=== PATIENT | male | born 1950 | race Caucasian/White ===

== ENCOUNTER 2019-02-25 09:33 | Inpatient (IN) ==
[2019-02-18 13:57] LABS: Appearance,Urine CLEAR; Bilirubin,Urine NEG (NEG); Color,Urine YELLOW; Glucose,Urine (UA) NEGATIVE (NEG); Ketones,Urine NEG (NEG); Leukocyte Esterase,Urine NEG /uL (NEG); Nitrate,Urine NEG (NEG); Protein,Urine NEG (NEG); Specific Gravity,Urine 1.018 (1.000-1.035); Urine Blood NEG mg/dL (<0.03)
[2019-02-18 14:43] LABS: Basophils # (Auto) 0 K/mcL (0.0-0.3); Basophils % (Auto) 0.4 % (0.0-2.0); Eosinophils # (Auto) 0.3 K/mcL (0.0-0.7); Eosinophils % (Auto) 3.8 % (0.0-7.0); Granulocytes % (Auto) 53.5 % (38.0-78.0); Hematocrit 42.6 % (41.0-55.0); Hemoglobin 13.7 g/dL (13.5-16.5); Lymphocytes # (Auto) 2.5 K/mcL (1.5-4.8); Lymphocytes % (Auto) 32.3 % (15.5-49.0); Mean Cell Volume 85.5 fL (80.0-100.0); Mean Corpuscular HGB Conc 32.2 g/dL (31.0-36.0); Mean Platelet Volume 8.2 fL (7.4-10.4); Monocytes # (Auto) 0.8 K/mcL (0.1-0.9); Platelet Count 245 K/mcL (140-440); RBC 4.98 M/mcL (4.50-5.90); WBC 7.7 K/mcL (4.5-11.0)
[2019-02-18 14:46] LABS: Blood Urea Nitrogen 14 mg/dl (8-23); Calcium 9.5 mg/dl (8.6-10.4); Carbon Dioxide 25 mmol/L (22-30); Chloride 101 mmol/L (96-108); Glomerular Filtration Rate 86; Glucose 110 mg/dL (70-105)
[2019-02-18 14:50] LABS: Prothrombin Time 13.1 sec (11.9-14.5)
[2019-02-18 14:59] LABS: Estimated Average Glucose(eAG) 143 mg/dL; Hemoglobin A1C 6.6 % HGB (4.0-6.0)
[~2019-02-25 09:33] MED LIST: 0.9 % SODIUM CHLORIDE 9 ML, KETOROLAC 30 MG, ROPIVACAINE HCL/PF 49.5 ML, EPINEPHrine 0.... IJ SCH; ACETAMINOPHEN 500 MG TABLET PO SCH; CELECOXIB 200 MG CAPSULE PO SCH; GABAPENTIN 400 MG CAPSULE PO SCH; IPRATROPIUM/ALBUTEROL 3 ML AMPUL.NEB NEB PRN; SCOPOLAMINE 1 PATCH PATCH TOPICAL PRN; ceFAZolin 2 GM in DEXTROSE 5% IN WATER 50 ML IV SCH; oxyCODONE 10 MG TAB.ER.12H PO SCH
[2019-02-25] MEDS ORDERED: SUCCINYLCHOLINE 20 MG/ML ML IV ONE (13:20)
[2019-02-25] MEDS ORDERED: GLYCOPYRROLATE 0.2 MG/ML VIAL IV ONE (13:20)
[2019-02-25] MEDS ORDERED: PROPOFOL 200 MG/20 ML VIAL IV ONE (13:20)
[2019-02-25] MEDS ORDERED: DEXAMETHASONE 10 MG/ML VIAL IV ONE (13:20)
[2019-02-25] MEDS ORDERED: ONDANSETRON 4 MG/2 ML VIAL IV ONE (13:20)
[2019-02-25] MEDS ORDERED: TRANEXAMIC ACID 1,000 MG/10 ML VIAL IV ONE (13:20)
[2019-02-25] MEDS ORDERED: VASOPRESSIN 20 UNIT/ML VIAL IV ONE (13:20)
[2019-02-25] MEDS ORDERED: MIDAZOLAM 5 MG/5 ML VIAL IV ONE (13:20)
[2019-02-25] MEDS ORDERED: fentaNYL 100 MCG/2 ML VIAL IV ONE (13:20)
[2019-02-25] MEDS ORDERED: LIDOCAINE HCL/PF 100 MG/5 ML SYRINGE IV ONE (13:20)
[2019-02-25] MEDS ORDERED: GENTAMICIN SULFATE 800 MG/20 ML VIAL IR ONE (13:48)
[2019-02-25] MEDS ORDERED: ePHEDrine 50 MG/ML AMPUL IV PRN (14:19)
[2019-02-25] MEDS ORDERED: ONDANSETRON 4 MG/2 ML VIAL IV PRN ×2 (14:19→15:07)
[2019-02-25] MEDS ORDERED: MEPERIDINE 25 MG/ML SYRINGE IV PRN (14:19)
[2019-02-25] MEDS ORDERED: ATROPINE SULFATE 0.4 MG/ML VIAL IV PRN (14:19)
[2019-02-25] MEDS ORDERED: FLUMAZENIL 0.1 MG/ML ML IV PRN (14:19)
[2019-02-25] MEDS ORDERED: METHOCARBAMOL 1,000 MG/10 ML VIAL IV PRN (14:19)
[2019-02-25] MEDS ORDERED: NALOXONE HCL 0.4 MG/ML VIAL IV PRN (14:19)
[2019-02-25] MEDS ORDERED: diphenhydrAMINE 50 MG/ML VIAL IV PRN (14:19)
[2019-02-25] MEDS ORDERED: IPRATROPIUM/ALBUTEROL 3 ML AMPUL.NEB NEB PRN (14:19)
[2019-02-25] MEDS ORDERED: METOPROLOL TARTRATE 5 MG/5 ML VIAL IV PRN (14:19)
[2019-02-25] MEDS ORDERED: PROMETHAZINE 25 MG/ML VIAL IV PRN (14:19)
[2019-02-25] MEDS ORDERED: fentaNYL 100 MCG/2 ML VIAL IV PRN (14:19)
[2019-02-25] MEDS ORDERED: LACTATED RINGERS 1,000 ML IV SCH (14:30)
[2019-02-25] MEDS ORDERED: BENZOCAINE/MENTHOL 1 LOZENGE PO PRN (15:07)
[2019-02-25] MEDS ORDERED: FLEETS ADULT ENEMA PR PRN (15:07)
[2019-02-25] MEDS ORDERED: MAGNESIUM HYDROXIDE 30 ML ORAL.SUSP PO PRN (15:07)
[2019-02-25] MEDS ORDERED: TRANEXAMIC ACID 1,000 MG/10 ML VIAL IV SCH (15:07)
[2019-02-25] MEDS ORDERED: ACETAMINOPHEN 325 MG TABLET PO PRN (15:07)
[2019-02-25] MEDS ORDERED: BISACODYL 10 MG SUPP.RECT PR PRN (15:07)
[2019-02-25] MEDS ORDERED: HYDROmorphone 2 MG/ML VIAL IV PRN (15:07)
[2019-02-25] MEDS ORDERED: KETOROLAC 15 MG/ML VIAL IV PRN (15:07)
[2019-02-25] MEDS ORDERED: POLYETHYLENE GLYCOL 3350 17 GM PACKET PO PRN (15:07)
--- NOTE | 2019-02-25 15:07 | Brief Operative Note ---
Date of procedure: 02/25/19 Pre-op diagnosis: left hip djd severe Post-op diagnosis: same Procedure: Left hip total hip replacement Grafts/Implants: Yes Anesthesia: GRACEA Surgeon: Elmo Edwards Furnace Room Supervisor: Florencio Chapin Estimated blood loss (cc): 120 Tourniquet Time (Minutes): 0 Specimens Removed/Pathology: none sent Condition: stable Disposition: PACU
[2019-02-25] MEDS ORDERED: IBUPROFEN 200 MG TABLET PO PRN (15:09)
[2019-02-25] MEDS ORDERED: HYDROCODONE/APAP 7.5/325MG TABLET PO PRN (15:09)
--- NOTE | 2019-02-25 15:43 | Operative Note ---
DATE OF OPERATION: 02/25/2019 PREOPERATIVE DIAGNOSIS: Right hip degenerative arthritis, severe. POSTOPERATIVE DIAGNOSIS: Right hip degenerative arthritis, severe. PROCEDURE: Right total hip arthroplasty with a small amount of cement. SURGEON: Elmo Edwards MD POTTERY MACHINE OPERATOR: Florencio Chapin PA-C. This provider's expertise and technical skill were required throughout the case. The DG assisted with preoperative coordination, intraoperative retraction, wound closure, dressing and splint application, as well as postoperative documentation and care coordination. ANESTHESIA: General LMA anesthesia. COMPLICATIONS: None. TOURNIQUET TIME: None. ESTIMATED BLOOD LOSS: About 120 mL INDICATIONS: Patient had preoperative diagnosis of right hip degenerative arthritis, failed all conservative measures, both anti-inflammatories and injections, and now has x-rays with [id number] arthritis throughout. DESCRIPTION OF PROCEDURE: The patient was brought to the operating room and put to sleep with general anesthesia. Once asleep, the patient had the right hip sterilely prepped and draped in the left lateral position. Right hip was confirmed as the operative site. A superior posterior incision was made and we were able to make this superior approach to the hip. We dislocated the hip and made our neck cut at 35 mm in length and then subluxed the hip anteriorly. We reamed up the acetabulum to the size of 54, implanted a 54 cup with a 30 mm screw with a hooded liner. Once this was done, we then broached up the femur and placed a size 5 stem with a small amount of cement on the distal end. This seemed to fit very nicely and was very stable. This was reduced and x-rays taken to confirm leg length. The final implant was placed and a +2.5 neck length on the ceramic ball. There were no complications. We irrigated thoroughly, repaired the capsule with #2 Ethibond, closed the fascial layer with #1 Stratafix, closed the skin with Stratafix and bayron. The patient tolerated this well without complication. RBH:jake Job ID: [id number] Doc ID: [id number] Elmo Edwards MD
--- NOTE | 2019-02-25 15:51 | XRay Report ---
CLINICAL INFORMATION: right total hip arthroplasty COMPARISON: None. FINDINGS: Intraoperative film shows femoral stem template and acetabular prostheses in near anatomic position. No osseous abnormality. IMPRESSION: Intraoperative film - incomplete right total hip prostheses Interpreted and Authenticated by: Hilario Michele 02/25/19
--- NOTE | 2019-02-25 15:56 | XRay Report ---
CLINICAL INFORMATION: Post-op Total Hip COMPARISON: None. FINDINGS: Right total hip prostheses is in near-anatomic alignment with slightly more anteversion of the prosthetic acetabulum then is typically seen. No osseous abnormality. Mild degenerative changes left hip noted. SI joints are normal. Soft tissue swelling over the surgical site IMPRESSION: Right total hip prostheses. Interpreted and Authenticated by: Hilario Michele 02/25/19
[2019-02-25] MEDS: oxyCODONE/APAP 5/325MG TABLET PO PRN ×2 (17:44→21:24)
[2019-02-25] MEDS: 0.45 % SODIUM CHLORIDE 1,000 ML IV SCH ×2 (17:45→18:01)
[2019-02-25] MEDS: LACTATED RINGERS 1,000 ML IV SCH (17:45)
[2019-02-25] MEDS: GABAPENTIN 400 MG CAPSULE PO SCH (20:48)
[2019-02-25] MEDS: DOCUSATE SODIUM 100 MG CAPSULE PO SCH (20:48)
[2019-02-25] MEDS: ASPIRIN 325 MG ENTERIC COATED TABLET PO SCH (20:48)
[2019-02-25] MEDS: [UNRECOGNIZED DRUG - OTHER] NAS SCH (20:50)
[2019-02-25] MEDS: METOPROLOL TARTRATE 50 MG TABLET PO SCH (20:50)
[2019-02-25] MEDS: 0.9 % SODIUM CHLORIDE 10 ML SYRINGE IV SCH (20:50)
[2019-02-25] MEDS ORDERED: ATORVASTATIN 40 MG TABLET PO SCH (21:00)
[2019-02-25] MEDS ORDERED: SENNOSIDES 1 TABLET PO SCH (21:00)
[2019-02-25] MEDS ORDERED: DIVALPROEX SODIUM 250 MG TABLET PO SCH (21:00)
[2019-02-25] MEDS ORDERED: LISINOPRIL 20 MG TABLET PO SCH (21:00)
[2019-02-25] MEDS ORDERED: amLODIPine 10 MG TABLET PO SCH (21:00)
[2019-02-25] MEDS ORDERED: TEMAZEPAM 15 MG CAPSULE PO PRN (21:00)
[2019-02-25] MEDS ORDERED: OXYBUTYNIN CHLORIDE 5 MG TABLET PO SCH (21:00)
[2019-02-25] MEDS: ceFAZolin 1 GM VIAL IV SCH (21:24)
[2019-02-26] MEDS: LACTATED RINGERS 1,000 ML IV SCH ×2 (00:57→09:24)
[2019-02-26] MEDS: 0.45 % SODIUM CHLORIDE 1,000 ML IV SCH ×2 (00:57→09:24)
[2019-02-26] MEDS: oxyCODONE/APAP 5/325MG TABLET PO PRN ×2 (02:31→10:32)
[2019-02-26] MEDS: 0.9 % SODIUM CHLORIDE 10 ML SYRINGE IV SCH (05:24)
[2019-02-26] MEDS: ceFAZolin 1 GM VIAL IV SCH (05:24)
[2019-02-26] MEDS ORDERED: OMEPRAZOLE 20 MG CAPSULE PO SCH (07:30)
[2019-02-26] MEDS ORDERED: LEVOTHYROXINE 50 MCG TABLET PO SCH (07:30)
--- NOTE | 2019-02-26 07:38 | Orthopedic Progress Note ---
Subjective Patient information: Note initiated : 02/26/19 at 7:35 am Service Date, if different from initiated Date: [] Patient: Goldy Ortiz 68 y/o M admitted on 02/25/19 for Right Total Hip Arthroplasty. Chief Complaint: [Pt is stable this morning on post operative day 1 without any significant concerns or complaints. Patients vital signs have remained stable. Patients dressing is dry and is grossly intact from a neurovascular and motor standpoint. Patients 10 point ROS is otherwise negative. ] Objective Vital signs: Vital Signs Temp Pulse Resp BP BP Pulse Ox 02/26/19 07:18 70 18 94 02/26/19 07:00 70 02/26/19 03:10 98.0 F 70 18 123/70 93 02/25/19 23:48 98.5 F 78 18 130/66 94 02/25/19 19:31 98.0 F 72 18 142/68 95 02/25/19 19:30 98 02/25/19 19:02 72 132/73 96 02/25/19 18:31 69 129/72 93 02/25/19 18:16 64 119/72 93 02/25/19 18:02 64 103/63 91 02/25/19 17:46 65 95/51 96 02/25/19 17:31 65 103/67 90 02/25/19 17:15 68 17 99 02/25/19 17:07 99 02/25/19 16:21 97.5 F 68 17 112/57 99 02/25/19 16:06 97.0 F 68 20 106/61 95 02/25/19 15:55 97.0 F 61 18 95/52 93 02/25/19 15:40 98.2 F 63 19 88/39 94 02/25/19 15:35 62 20 103/46 95 02/25/19 15:30 61 17 100/53 100 02/25/19 15:25 59 L 17 101/46 100 02/25/19 15:20 60 18 102/48 99 02/25/19 15:19 97.9 F 62 16 120/58 100 02/25/19 10:00 98.0 F 60 18 144/86 97 02/25/19 09:33 98.0 F 61 18 144/86 97 Intake and Output 02/25/19 02/26/19 02/26/19 21:59 05:59 13:59 Intake Total 2750 425 Output Total 151 800 250 Balance 2599 -375 -250 Intake: Oral 500 425 IV - Manual Only 2250 Output: Void Amount 800 250 # of times incontinent of urine 1 Estimated Blood Loss 150 Other: Urine Appearance Clear Clear Clear Urine Color Bright Yellow Bright Yellow Bright Yellow Urine Odor Normal Normal Normal Weight 264 lb 11.2 oz Intake & Output: Intake & Output 02/25/19 02/26/19 02/26/19 21:59 05:59 13:59 Intake Total 2750 425 Output Total 151 800 250 Balance 2599 -375 -250 Weight 264 lb 11.2 oz Intake: Oral 500 425 IV - Manual Only 2250 Output: Void Amount 800 250 # of times incontinent of urine 1 Estimated Blood Loss 150 Other: Urine Appearance Clear Clear Clear Urine Color Bright Yellow Bright Yellow Bright Yellow Urine Odor Normal Normal Normal Incision: Yes healing Incision clean and dry: Yes Dressing: Yes clean Weight bearing status: full Neurological exam IM: Yes motor sensory intact, Yes neurovascular intact Extremities exam IM: Yes Foot pink and warm, Yes neurovascular intact - Labs CBC & BMP: 02/26/19 05:00 02/18/19 11:54 Labs: Orthopedic Labs 02/18/19 11:54 PT 13.1 INR 1.0 APTT 27 02/26/19 02/18/19 05:00 11:54 Hgb 13.7 Hct 39.3 L 42.6 Assessment and Plan (1) Hx of total hip arthroplasty The patient has been educated regarding dressing care, Physical Therapy recommendations, home exercises, restrictions, and follow up appointments. The patient has had all necessary DME prescribed. The patient has remained relatively stable during their hospital course. Status: Acute
--- NOTE | 2019-02-26 07:41 | Discharge Summary ---
Ortho Discharge - MAREK - Patient Instructions Diet: Regular Diet Activity: activity as tolerated, weight bearing as tolerated Total Hip Protocol: Follow activity instructions as provided by Physical Therapy. Dressing Care: May shower in 2 days - Problem Maintenance (1) Hx of total hip arthroplasty Status: Acute - Follow Up Plan Follow Up Appointments: Florencio Chapin PA-C [Physician Dry House Attendant] - 03/12/19 9:10 am Disposition: Home, Self-Care Prognosis: Good Rehab Potential: Good I certify that the patient requires SNF services: No Overall status at discharge: patient is progressing back to baseline - Orders For Discharge Prescriptions: Docusate Sodium [Colace] 100 mg PO BID #60 cap Transmission Status: Pending to [facility] Aspirin [Ecotrin] 325 mg PO BID #60 tab.ec Transmission Status: Pending to [facility] oxyCODONE/APAP [Percocet 5-325 mg] 1 - 2 tab PO Q4HP PRN #75 tab PRN Reason: Per Pain Protocol Prescription Printed
[2019-02-26] MEDS: METOPROLOL TARTRATE 50 MG TABLET PO SCH (08:37)
[2019-02-26] MEDS: GABAPENTIN 400 MG CAPSULE PO SCH (08:37)
[2019-02-26] MEDS: ASPIRIN 325 MG ENTERIC COATED TABLET PO SCH (08:37)
[2019-02-26] MEDS: DOCUSATE SODIUM 100 MG CAPSULE PO SCH (08:37)
[2019-02-26] MEDS ORDERED: FLUoxetine HCL 20 MG CAPSULE PO SCH (09:00)
[2019-02-26] MEDS ORDERED: FOLIC ACID 1 MG TABLET PO SCH (09:00)
[2019-02-26] MEDS ORDERED: buPROPion 150 MG TAB.XL.24H PO SCH (09:00)
[2019-02-26] MEDS ORDERED: ASPIRIN 81 MG TAB.CHEW PO SCH (09:00)
[2019-02-26] MEDS: [UNRECOGNIZED DRUG - OTHER] NAS SCH (09:23)
== END 2019-02-26 12:10 | disposition home or self-care (01) | DRG 470 ==
LOC: MEDSUR 09:33
PROVIDERS: ADMIT Orthopaedic Surgery; ATTEND Orthopaedic Surgery

== ENCOUNTER 2019-03-01 20:48 | Inpatient (IN) ==
--- NOTE | 2019-03-01 21:36 | Emergency Department Note ---
Altered Mental Status HPI - General Chief Complaint: Altered Mental Status Stated Complaint: altered mental status Time Seen by Provider: 03/01/19 21:10 Source: EMS Mode of arrival: EMS Limitations: altered mental status - History of Present Illness HPI Narrative: This 68-year-old male comes emergency room transferred by EMS. He has been at home for the last 4 days. He had surgery by Dr. Jamari Edwards, right hip replacement (total) 4 days ago on Monday the . He had a significant fall on the and was reevaluated here but no findings came of that visit. In the past 2 days now he is acted confused, slurred speech, hallucinating (was petting his cat which was not present) has acted weak and tired and had incontinence of urine when he arrived. REVIEW OF SYSTEMS: Denies fever or chills. reports that he had sweats today No blurry vision or double vision No chest pain May be short of breath but hard to understand his answer No abdominal pain, nausea or vomiting No dizziness Has chronic anxiety and depression for which he takes fluoxetine and bupropion. [facility]; diet controlled. - Related Data Home Medications Medication Instructions Recorded Confirmed Aspirin 81 mg PO DAILY 02/18/19 03/01/19 FLUoxetine HCL [Prozac] 60 mg PO DAILY 02/18/19 03/01/19 Flunisolide Graciela [place] [Nasalide] 2 spray GRACIELA BID 02/18/19 03/01/19 Folic Acid 1 mg PO DAILY 02/18/19 03/01/19 Gabapentin [Neurontin] 400 mg PO TID 02/18/19 03/01/19 Hydrocodone/APAP 7.5/325Mg [Stephen[place] 1 tab PO BIDP PRN 02/18/19 03/01/19 7.5-325Mg] Ibuprofen [Motrin] 400 mg PO TIDP PRN 02/18/19 03/01/19 Levothyroxine [Synthroid] 50 mcg PO QAMAC 02/18/19 03/01/19 Lisinopril [Zestril] 40 mg PO HS 02/18/19 03/01/19 Metoprolol Tartrate [Lopressor] 50 mg PO BID 02/18/19 03/01/19 Omeprazole [Prilosec] 40 mg PO ACB 02/18/19 03/01/19 Oxybutynin Chloride [Ditropan] 5 mg PO HS 02/18/19 03/01/19 Rosuvastatin [Crestor] 40 mg PO HS 02/18/19 03/01/19 amLODIPine [Norvasc] 10 mg HS 02/18/19 03/01/19 buPROPion [Wellbutrin Xl] 300 mg PO DAILY 02/18/19 03/01/19 Divalproex Sodium [Divalproex 1,000 mg PO HS 02/20/19 03/01/19 Sodium ER] Previous Rx's Medication Instructions Recorded Aspirin [Ecotrin] 325 mg PO BID #60 tab.ec 02/26/19 Docusate Sodium [Colace] 100 mg PO BID #60 cap 02/26/19 oxyCODONE/APAP [Percocet 5-325 mg] 1 - 2 tab PO Q4HP PRN #75 tab 02/26/19 Allergies Allergy/AdvReac Type Severity Reaction Status Date / Time No Known Drug Allergies Allergy Verified 03/01/19 20:56 Past Medical History - Past Medical History [facility] Narrative: Medical History (Last Updated 03/01/19 @ 21:50 by José Chiu DO) Coronary artery disease (Chronic) Diabetes mellitus, type 2 (Chronic) Hypertension, essential (Chronic) Hyperlipidemia (Chronic) Obstructive sleep apnea on CPAP (Chronic) Hypothyroidism, acquired (Chronic) Right hip pain (Chronic) Obesity (BMI 30-39.9) (Chronic) Peripheral neuropathy (Chronic) Anxiety, generalized (Chronic) BPH (benign prostatic hyperplasia) (Chronic) Fall (Resolved) Past Surgical History (Last Updated 03/01/19 @ 21:49 by José Chiu DO) History of elbow surgery (Acute) History of total right hip arthroplasty (Acute) Status post cataract extraction and insertion of intraocular lens (Acute) Source: old records reviewed, obtained from family Psychiatric history: Reports: anxiety, depression - Social History smoking status: Never smoker Alcohol use: Reports: None Drug use: Reports: none. Denies: marijuana Physical Exam Limitations: altered mental status General appearance: alert, in no apparent distress, other (Most of the time will lay with his eyes closed but quickly seems alert when spoken to and opens his eyes.) Head: atraumatic, normocephalic Eye: Present: normal appearance, PERRL, EOMI. Absent: scleral icterus, conjunctival injection ENT: Present: normal oropharynx, mucous membranes moist Neck: Present: trachea midline. Absent: lymphadenopathy, thyromegaly Chest: Present: symmetric chest wall rise Respiratory: Present: normal lung sounds bilaterally. Absent: respiratory distress, wheezes, stridor, accessory muscle use, prolonged expiratory phase Cardiovascular: Present: regular rate, normal rhythm. Absent: systolic murmur, diastolic murmur Abdominal: Present: soft, other (Large and domed but soft). Absent: distention, tenderness, guarding, rebound, rigidity, organomegaly, mass Extremities: Absent: pedal edema, pretibial edema, calf tenderness Neurological: Present: alert Patient oriented to: Present: person, time (mostly). Absent: place Speech: Present: slurred, other (Rather poor enunciation making it difficult to hear or understand at times.) Cranial nerves: EOM function (II, III, IV, ): Normal, tongue deviation (XII): Normal Cerebellar function: finger to nose: Abnormal Left, Abnormal Right (He is not able to consistently get his finger to his nose even when instructed to multiple times.) Motor strength - LUE: 4/5 Motor strength - RUE: 4/5 Motor strength - LLE: 4/5 Motor strength - RLE: 3/5 Coma Scale Eye Opening: To Voice Coma Scale Motor Response: Obeys Commands Coma Scale Verbal Response: Oriented Coma Scale Total: 14 Psychiatric: Present: normal affect, normal mood. Absent: depressed, agitated, anxious, suicidal ideation, serious, tearful, poor eye contact Skin: Present: warm, dry Course Vital Signs Temperature 97.9 F 03/01/19 20:49 Pulse Rate 65 03/01/19 20:49 Respiratory Rate 18 03/01/19 20:49 Blood Pressure 163/139 03/01/19 20:49 Pulse Oximetry (%) 94 03/01/19 20:49 Temperature 99.0 F 03/01/19 23:39 Pulse Rate 66 03/01/19 23:59 Respiratory Rate 20 03/01/19 23:59 Blood Pressure 89/47 03/01/19 23:59 Pulse Oximetry (%) 93 03/01/19 23:59 Altered Mental Status - MDM Narrative Medical decision making narrative: 9:19 PM - series of mental status type of changes, general weakness, hallucinations, incontinence of urine tonight here, etc. We will do broad work- up including imaging with CT scan of the brain. Because of a history of sleep apnea will go ahead with a venous blood gas. 10:33 PM - patient's EKG demonstrates a right bundle branch block with a normal sinus rhythm with a rate of 63. Some flattening of T waves in 3, aVF and inverted in V1. No ST-T wave segment depression or elevation. 10:37 PM - CT of the head without IV contrast indicates "no acute intracranial abnormality". 12:10 AM - after 500 cc normal saline bolus patient actually seemed to be much more alert and interactive, feisty, telling a few jokes, and much of his wording came out significantly more clear. I spoke with family about the consideration of needing an MRI of his brain which is not available here tonight. [place]ibility [place] They are requesting that I speak with the hospitalist locally to consider if this patient could be kept here. 12:17 AM - spoke with hospitalist, Dr. Emile Mota, who agrees with the considerations of additional fluids, likely will improve, MRI is likely available tomorrow we found out while on the phone, etc. and so kindly accepts this patient. Transition orders written. Patient will have additional fluid boluses. We are using lactated Ringer's now. He is also taking water orally. He is joking and smiling and interactive with his family with bright eyes currently. This is still even in spite of systolic blood pressures 85-90. He is expected to do well. - Lab Data Lab results reviewed: Yes I reviewed the patient's lab results. Result diagrams: 03/01/19 21:10 03/01/19 21:10 Lab Results 03/01/19 03/01/19 03/01/19 Range/Units 21:10 21:10 21:10 WBC 9.6 (4.5-11.0) K/mcL RBC 3.62 L (4.50-5.90) M/mcL Hgb 10.1 L (13.5-16.5) g/dL Hct 31.1 L (41.0-55.0) % MCV 86.1 (80.0-100.0) fL MCH 27.9 (26.0-34.0) pg MCHC 32.4 (31.0-36.0) g/dL RDW 16.5 H (11.5-14.5) % Plt Count 248 (140-440) K/mcL MPV 8.2 (7.4-10.4) fL Gran % 68.7 (38.0-78.0) % Lymph % (Auto) 18.2 (15.5-49.0) % Gillespie % (Auto) 10.9 (1.0-12.0) % Eos % (Auto) 2.0 (0.0-7.0) % Baso % (Auto) 0.2 (0.0-2.0) % Gran # 6.6 (1.8-8.0) K/mcL Lymph # (Auto) 1.7 (1.5-4.8) K/mcL Gillespie # (Auto) 1.0 H (0.1-0.9) K/mcL Eos # (Auto) 0.2 (0.0-0.7) K/mcL Baso # (Auto) 0 (0.0-0.3) K/mcL ABG Methemoglobin (0.4-1.5) % VBG pH (7.32-7.42) U VBG pCO2 (41.0-51.0) mmHg VBG pO2 (25-40) mmHg VBG HCO3 (24.0-28.0) mmol/L VBG Total CO2 (25.0-29.0) mmol/L VBG O2 Saturation (40.0-70.0) % VBG Base Excess (-2.0-2.0) VBG Lactic Acid 1.2 (0.5-2.0) mmol/L Carboxyhemoglobin (0.0-1.5) % THgb Total Hemoglobin (13.5-16.5) gm/dL O2 Delivery Level Sodium 135 (133-145) mmol/L Potassium 4.7 (3.3-5.1) mmol/L Chloride 99 (96-108) mmol/L Carbon Dioxide 26 (22-30) mmol/L Anion Gap 10.0 (8-16) BUN 44 H (8-23) mg/dl Creatinine 1.7 H (0.7-1.2) mg/dl GFR Calculation 40 Glucose 146 H (70-105) mg/dL Calcium 8.8 (8.6-10.4) mg/dl Total Bilirubin 1.0 (0.0-1.0) mg/dL AST 61 H (0-37) U/l ALT 32 (0-40) U/l Alkaline Phosphatase 93 (39-117) U/L Total Protein 6.2 (5.9-8.4) gm/dL Albumin 2.7 L (3.2-5.2) gm/dL Globulin 3.5 (2.2-3.7) gm/dL Albumin/Globulin Ratio 0.8 L (1.0-2.3) Urine Color Urine Appearance Urine pH (5.0-9.0) Ur Specific [place] (1.000-1.035) Urine Protein (NEG) mg/dL Urine Glucose (UA) (NEG) mg/dL Urine Ketones (NEG) mg/dL Urine Occult Blood (<0.03) mg/dL Urine Nitrate (NEG) Urine Bilirubin (NEG) mg/dL Urine Urobilinogen (NEG) mg/dL Ur Leukocyte Esterase (NEG) /uL Ur Culture Indicated? 03/01/19 03/01/19 Range/Units 21:17 22:10 WBC (4.5-11.0) K/mcL RBC (4.50-5.90) M/mcL Hgb (13.5-16.5) g/dL Hct (41.0-55.0) % MCV (80.0-100.0) fL MCH (26.0-34.0) pg MCHC (31.0-36.0) g/dL RDW (11.5-14.5) % Plt Count (140-440) K/mcL MPV (7.4-10.4) fL Gran % (38.0-78.0) % Lymph % (Auto) (15.5-49.0) % Gillespie % (Auto) (1.0-12.0) % Eos % (Auto) (0.0-7.0) % Baso % (Auto) (0.0-2.0) % Gran # (1.8-8.0) K/mcL Lymph # (Auto) (1.5-4.8) K/mcL Gillespie # (Auto) (0.1-0.9) K/mcL Eos # (Auto) (0.0-0.7) K/mcL Baso # (Auto) (0.0-0.3) K/mcL ABG Methemoglobin 0.3 L (0.4-1.5) % VBG pH 7.42 (7.32-7.42) U VBG pCO2 44.0 (41.0-51.0) mmHg VBG pO2 64 H (25-40) mmHg VBG HCO3 28.0 (24.0-28.0) mmol/L VBG Total CO2 29.3 H (25.0-29.0) mmol/L VBG O2 Saturation 85.6 H (40.0-70.0) % VBG Base Excess 3.1 H (-2.0-2.0) VBG Lactic Acid (0.5-2.0) mmol/L Carboxyhemoglobin 3.3 H (0.0-1.5) % THgb Total Hemoglobin 10.3 L (13.5-16.5) gm/dL O2 Delivery Level Not Reportable Sodium (133-145) mmol/L Potassium (3.3-5.1) mmol/L Chloride (96-108) mmol/L Carbon Dioxide (22-30) mmol/L Anion Gap (8-16) BUN (8-23) mg/dl Creatinine (0.7-1.2) mg/dl GFR Calculation Glucose (70-105) mg/dL Calcium (8.6-10.4) mg/dl Total Bilirubin (0.0-1.0) mg/dL AST (0-37) U/l ALT (0-40) U/l Alkaline Phosphatase (39-117) U/L Total Protein (5.9-8.4) gm/dL Albumin (3.2-5.2) gm/dL Globulin (2.2-3.7) gm/dL Albumin/Globulin Ratio (1.0-2.3) Urine Color Yellow Urine Appearance Clear Urine pH 5.0 (5.0-9.0) Ur Specific [place] 1.021 (1.000-1.035) Urine Protein Neg (NEG) mg/dL Urine Glucose (UA) Negative (NEG) mg/dL Urine Ketones Neg (NEG) mg/dL Urine Occult Blood Neg (<0.03) mg/dL Urine Nitrate Neg (NEG) Urine Bilirubin Neg (NEG) mg/dL Urine Urobilinogen 2.0 A (NEG) mg/dL Ur Leukocyte Esterase Neg (NEG) /uL Ur Culture Indicated? No - EKG Data EKG attestation: Yes There are no EKG findings of acute coronary syndrome, Yes This EKG will be read by bindery manager Disposition Pt seen by SPLIT LEATHER DEPARTMENT SUPERVISOR/PA only: No Clinical Impression: Azotemia Hypotension Qualifiers: Hypotension type: hypotension due to hypovolemia Qualified Code(s): I95.89 - Other hypotension; E86.1 - Hypovolemia Change in mental status Qualifiers: Altered mental status type: delirium Qualified Code(s): R41.0 - Disorientation, unspecified Disposition: Xfer As Inpt ([facility]) Condition: Fair Referrals: No,PCP [Primary Care Provider] -
[2019-03-01 21:50] LABS: Basophils # (Auto) 0 K/mcL (0.0-0.3); Basophils % (Auto) 0.2 % (0.0-2.0); Eosinophils # (Auto) 0.2 K/mcL (0.0-0.7); Granulocytes % (Auto) 68.7 % (38.0-78.0); Hematocrit 31.1 % (41.0-55.0); Hemoglobin 10.1 g/dL (13.5-16.5); Lymphocytes # (Auto) 1.7 K/mcL (1.5-4.8); Lymphocytes % (Auto) 18.2 % (15.5-49.0); Mean Cell Volume 86.1 fL (80.0-100.0); Mean Corpuscular HGB Conc 32.4 g/dL (31.0-36.0); Mean Platelet Volume 8.2 fL (7.4-10.4); Monocytes % (Auto) 10.9 % (1.0-12.0); Platelet Count 248 K/mcL (140-440); RBC 3.62 M/mcL (4.50-5.90); Red Cell Distribution Width 16.5 % (11.5-14.5); WBC 9.6 K/mcL (4.5-11.0)
[2019-03-01 21:51] LABS: Appearance,Urine CLEAR; Bilirubin,Urine NEG (NEG); Color,Urine YELLOW; Culture Indicated,Urine NO; Glucose,Urine (UA) NEGATIVE (NEG); Ketones,Urine NEG (NEG); Leukocyte Esterase,Urine NEG /uL (NEG); Nitrate,Urine NEG (NEG); Protein,Urine NEG (NEG); Specific Gravity,Urine 1.021 (1.000-1.035); Urine Blood NEG mg/dL (<0.03)
[2019-03-01 22:06] LABS: ALT/SGPT 32 U/l (0-40); AST/SGOT 61 U/l (0-37); Albumin 2.7 gm/dL (3.2-5.2); Albumin/Globulin Ratio 0.8 (1.0-2.3); Alkaline Phosphatase 93 U/L (39-117); Blood Urea Nitrogen 44 mg/dl (8-23); Calcium 8.8 mg/dl (8.6-10.4); Carbon Dioxide 26 mmol/L (22-30); Chloride 99 mmol/L (96-108); Globulin 3.5 gm/dL (2.2-3.7); Glomerular Filtration Rate 40; Glucose 146 mg/dL (70-105)
[2019-03-01 22:31] LABS: ABG Methemoglobin 0.3 % (0.4-1.5); Total Hemoglobin 10.3 gm/dL (13.5-16.5); VBG Base Excess 3.1 (-2.0-2.0); VBG Oxygen Saturation 85.6 % (40.0-70.0); VBG PH 7.42 U (7.32-7.42); VBG PO2 64 mmHg (25-40); VBG Total CO2 29.3 mmol/L (25.0-29.0)
[2019-03-01] MEDS ORDERED: 0.9 % SODIUM CHLORIDE 500 ML IV ONE (23:19)
[2019-03-02] MEDS: 0.9 % SODIUM CHLORIDE 500 ML IV SCH (00:24)
[2019-03-02] MEDS ORDERED: ONDANSETRON 4 MG/2 ML VIAL IV PRN ×2 (00:31→08:33)
[2019-03-02] MEDS ORDERED: ACETAMINOPHEN 325 MG TABLET PO PRN (00:31)
[2019-03-02] MEDS ORDERED: POLYETHYLENE GLYCOL 3350 17 GM PACKET PO ONE ×2 (00:31→08:33)
[2019-03-02] MEDS: LACTATED RINGERS 1,000 ML IV SCH ×4 (01:10→14:46)
--- NOTE | 2019-03-02 01:50 | XRay Report ---
CLINICAL INFORMATION: Confusion and weakness COMPARISON: None. TECHNIQUE: PA and Lateral views FINDINGS: The heart size, mediastinum and pulmonary vessels are unremarkable. The lungs are clear. There are no effusions. The bones and soft tissues are within normal limits. IMPRESSION: Normal chest. Interpreted and Authenticated by: Hilario Michele 03/02/19
--- NOTE | 2019-03-02 01:52 | Cat Scan Report ---
CLINICAL INFORMATION: Altered mental status COMPARISON: None. TECHNIQUE: 2.5 mm helical slices were obtained in the skull base to vertex. Following reconstruction, axial reformatted images were reviewed at bone and parenchymal windows. The exam was performed using radiation dose optimization techniques including, but not limited to, automated exposure control, adjustment of the mA and/or kV according to patient size and use of iterative reconstruction technique. FINDINGS: The ventricles, sulci, fissures, and cisterns are symmetrically enlarged compatible with mild age-related atrophy. There is no subdural hemorrhage or extra-axial fluid collections appreciated. Mild chronic ischemic changes in the cerebral white matter - expected for age. There is a 5 mm remote lacunar infarct in the deep right frontal white matter. There is no intracerebral hemorrhage, mass effect, edema or other acute finding. The bone windows show no osseous abnormality. IMPRESSION: Mild atrophy with mild chronic ischemic changes in the cerebral white matter that expected for age. 5 mm lacunar infarct in the right frontal white matter. No acute findings Interpreted and Authenticated by: Hilario Michele 03/02/19
[2019-03-02] MEDS ORDERED: IPRATROPIUM/ALBUTEROL 3 ML AMPUL.NEB NEB ONE ×2 (03:06→03:11)
[2019-03-02 05:56] LABS: Basophils # (Auto) 0 K/mcL (0.0-0.3); Basophils % (Auto) 0.4 % (0.0-2.0); Eosinophils # (Auto) 0.3 K/mcL (0.0-0.7); Eosinophils % (Auto) 3.3 % (0.0-7.0); Granulocytes % (Auto) 57.9 % (38.0-78.0); Lymphocytes % (Auto) 25.3 % (15.5-49.0); Mean Cell Volume 87.1 fL (80.0-100.0); Mean Corpuscular HGB Conc 32.2 g/dL (31.0-36.0); Mean Platelet Volume 8.4 fL (7.4-10.4); Monocytes % (Auto) 13.1 % (1.0-12.0); Platelet Count 229 K/mcL (140-440); RBC 3.56 M/mcL (4.50-5.90); Red Cell Distribution Width 16.3 % (11.5-14.5); WBC 7.9 K/mcL (4.5-11.0)
[2019-03-02 06:21] LABS: ALT/SGPT 32 U/l (0-40); AST/SGOT 51 U/l (0-37); Albumin 2.7 gm/dL (3.2-5.2); Albumin/Globulin Ratio 0.8 (1.0-2.3); Alkaline Phosphatase 92 U/L (39-117); Bilirubin,Direct 0.2 mg/dL (0.0-0.3); Bilirubin,Total 0.8 mg/dL (0.0-1.0); Blood Urea Nitrogen 42 mg/dl (8-23); Calcium 8.4 mg/dl (8.6-10.4); Carbon Dioxide 28 mmol/L (22-30); Chloride 100 mmol/L (96-108); Globulin 3.2 gm/dL (2.2-3.7); Glomerular Filtration Rate 43; Glucose 113 mg/dL (70-105); Lactate Dehydrogenase 224 U/L (94-250); Triglycerides 122 mg/dl (<150); Uric Acid 7.4 mg/dL (2.5-8.0)
--- NOTE | 2019-03-02 07:59 | Internal Med History&Physical ---
Medical - H&P: [facility] Patient information: Note initiated : 03/02/19 at 7:50 am Service Date, if different from initiated Date: [] Patient: Goldy Ortiz 68 y/o M admitted on 03/02/19 for altered mental status. Chief Complaint: [] History of present illness: Mr. Ortiz is a 68 year old M Presents to the ED with altered mental state. Patient had a total hip arthroplasty on the fourth. Several days after he fell came back to the ER and then was discharged. But then was brought back by EMS. Per he has been weak has slurred speech and appearing confused. He is been hallucinating and is incontinent of urine. He is incomprehensible at times and speaking. In the ED he did have hypotension in the 80s. His BUN and creatinine were elevated. Lactate was okay and he had no fever or leukocytosis. CT the brain shows an old lacunar infarct but no nothing new. X-ray and urinalysis and EKG no acute pathology. Mentation did seem to show some improvement with IV fluids. In speaking with the patient he does not feel like his speech is slurred although he does say "gruff". When asked about hallucinations he had having yesterday with the cat he says he does recall a cat and now realizing that it was not there. Denies any numbness tingling weakness in any of his extremities. Denies any visual changes. Last bowel movement sounds like may be Monday. Per nurses still seem to have little confusion overnight and mumbling at times. Review of Systems: Pertinent positives as above. Denies headac he/fever/chills/nausea/vomiting/chest or abdominal pain/cough/dyspnea/diarrhea. Remaining 10 point review of system reviewed negative Medical - H&P: PMH Medical history: Medical History (Last Updated 03/01/19 @ 22:35 by José Chiu DO) Coronary artery disease (Chronic) Diabetes mellitus, type 2 (Chronic) Hypertension, essential (Chronic) Hyperlipidemia (Chronic) Obstructive sleep apnea on CPAP (Chronic) Hypothyroidism, acquired (Chronic) Right hip pain (Chronic) Obesity (BMI 30-39.9) (Chronic) Peripheral neuropathy (Chronic) Anxiety, generalized (Chronic) BPH (benign prostatic hyperplasia) (Chronic) GERD (gastroesophageal reflux disease) (Chronic) Right bundle branch block (RBBB) (Chronic) Fall (Resolved) Past Surgical History (Last Updated 03/01/19 @ 21:49 by José Chiu DO) History of elbow surgery (Acute) History of total right hip arthroplasty (Acute) Status post cataract extraction and insertion of intraocular lens (Acute) Family history: Mother CVA Father had CVA Social History Patient denies tobacco or alcohol lives with Medical - H&P: Meds Home Medications Medication Instructions Recorded Confirmed Type Aspirin 81 mg PO DAILY 02/18/19 03/01/19 History FLUoxetine HCL [Prozac] 60 mg PO DAILY 02/18/19 03/01/19 History Flunisolide Graciela A[place]on [Nasalide] 2 spray GRACIELA BID 02/18/19 03/01/19 History Folic Acid 1 mg PO DAILY 02/18/19 03/01/19 History Gabapentin [Neurontin] 400 mg PO TID 02/18/19 03/01/19 History Hydrocodone/APAP 7.5/325Mg [[place] 1 tab PO BIDP PRN 02/18/19 03/01/19 History 7.5-325Mg] Ibuprofen [Motrin] 400 mg PO TIDP PRN 02/18/19 03/01/19 History Levothyroxine [Synthroid] 50 mcg PO QAMAC 02/18/19 03/01/19 History Lisinopril [Zestril] 40 mg PO HS 02/18/19 03/01/19 History Metoprolol Tartrate [Lopressor] 50 mg PO BID 02/18/19 03/01/19 History Omeprazole [Prilosec] 40 mg PO ACB 02/18/19 03/01/19 History Oxybutynin Chloride [Ditropan] 5 mg PO HS 02/18/19 03/01/19 History Rosuvastatin [Crestor] 40 mg PO HS 02/18/19 03/01/19 History amLODIPine [Norvasc] 10 mg HS 02/18/19 03/01/19 History buPROPion [Wellbutrin Xl] 300 mg PO DAILY 02/18/19 03/01/19 History Divalproex Sodium [Divalproex 1,000 mg PO HS 02/20/19 03/01/19 History Sodium ER] Aspirin [Ecotrin] 325 mg PO BID #60 tab.ec 02/26/19 03/01/19 Rx Docusate Sodium [Colace] 100 mg PO BID #60 cap 02/26/19 03/01/19 Rx oxyCODONE/APAP [Percocet 5-325 mg] 1 - 2 tab PO Q4HP PRN #75 tab 02/26/19 03/01/19 Rx Allergies Allergy/AdvReac Type Severity Reaction Status Date / Time No Known Drug Allergies Allergy Verified 03/01/19 20:56 Medical - H&P: Exam - Constitutional Vitals: Temp Pulse Resp BP Pulse Ox 98.5 F 72 18 122/97 97 03/02/19 01:23 03/02/19 03:47 03/02/19 07:06 03/02/19 07:02 03/02/19 05:47 Exam: General: Alert, Awake, No acute Distress, obese Eyes/N/T: EOMI, PEERL, DMM Head/Neck: neck supple, normocephalic atraumatic CV: RRR, No murmurs, normal s1/s2 Pulm: Clear b/l, no wheezing/rhonchi/rales Abd: soft, nontender, +BS x4 Ext: no clubbing/cyanosis/edema Neuro: Alert, oriented to president place person but wrong on the year stating 2019, his speech seems slightly slurred to me but difficult to tell. He has no facial droop, sensations are intact bilateral lower strength is symmetrical bilateral lower. Possible mild pronator drift on the right. Skin: warm/dry Medical - H&P: Reslt - Labs CBC & Chem 7: 03/02/19 04:25 03/02/19 04:25 Labs: Short CBC 03/01/19 03/02/19 Range/Units 21:10 04:25 WBC 9.6 7.9 (4.5-11.0) K/mcL Hgb 10.1 L 10.0 L (13.5-16.5) g/dL Hct 31.1 L 31.0 L (41.0-55.0) % Plt Count 248 229 (140-440) K/mcL BMP 03/01/19 03/02/19 21:10 04:25 Sodium 135 137 Potassium 4.7 4.1 Chloride 99 100 Carbon Dioxide 26 28 BUN 44 H 42 H Creatinine 1.7 H 1.6 H Glucose 146 H 113 H Calcium 8.8 8.4 L Liver Function 03/01/19 03/02/19 Range/Units 21:10 04:25 Total Bilirubin 1.0 0.8 (0.0-1.0) mg/dL Direct Bilirubin 0.2 (0.0-0.3) mg/dL GGT 66 H (8-61) U/L AST 61 H 51 H (0-37) U/l ALT 32 32 (0-40) U/l Alkaline Phosphatase 93 92 (39-117) U/L Albumin 2.7 L 2.7 L (3.2-5.2) gm/dL Urine 03/01/19 Range/Units 21:17 Urine Color Yellow Urine Appearance Clear Urine pH 5.0 (5.0-9.0) Ur Specific [place] 1.021 (1.000-1.035) Urine Protein Neg (NEG) mg/dL Urine Glucose (UA) Negative (NEG) mg/dL - ABG Interpretation ABG results: 03/01/19 22:10 ABG Methemoglobin 0.3 L VBG pH 7.42 VBG pCO2 44.0 VBG pO2 64 H VBG HCO3 28.0 VBG Total CO2 29.3 H VBG O2 Saturation 85.6 H VBG Base Excess 3.1 H - Impressions Chest x-ray and CT no acute pathology but the CT does show an old lacunar infarct. 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
[2019-03-02] MEDS ORDERED: 0.9 % SODIUM CHLORIDE 1,000 ML IV SCH (08:15)
[2019-03-02] MEDS ORDERED: POLYETHYLENE GLYCOL 3350 17 GM PACKET PO PRN (08:33)
[2019-03-02] MEDS ORDERED: SENNOSIDES 1 TABLET PO PRN (08:33)
[2019-03-02] MEDS ORDERED: SENNOSIDES 1 TABLET PO ONE (08:33)
[2019-03-02] MEDS ORDERED: LACTULOSE 20 GM/30 ML ORAL.SOL PO PRN (08:33)
[2019-03-02] MEDS ORDERED: MAGNESIUM SULFATE 2 GM/50 ML BAG IV PRN (08:33)
[2019-03-02] MEDS ORDERED: POTASSIUM CHLORIDE 40 MEQ in DEXTROSE 5% IN WATER 500 ML IV PRN (08:33)
[2019-03-02] MEDS ORDERED: IPRATROPIUM/ALBUTEROL 3 ML AMPUL.NEB NEB PRN (08:33)
[2019-03-02] MEDS ORDERED: POTASSIUM CHLORIDE 20 MEQ TABLET PO PRN ×2 (08:33)
[2019-03-02] MEDS: ASPIRIN 81 MG TAB.CHEW PO SCH (10:13)
[2019-03-02] MEDS: FOLIC ACID 1 MG TABLET PO SCH (10:13)
[2019-03-02] MEDS: ENOXAPARIN 40 MG/0.4 ML SYRINGE SQ SCH (10:13)
[2019-03-02] MEDS: FLUoxetine HCL 20 MG CAPSULE PO SCH (10:13)
[2019-03-02] MEDS: buPROPion 150 MG TAB.XL.24H PO SCH (10:13)
[2019-03-02] MEDS: DOCUSATE SODIUM 100 MG CAPSULE PO SCH ×2 (10:13→21:44)
[2019-03-02] MEDS: GABAPENTIN 400 MG CAPSULE PO SCH ×3 (10:14→21:44)
[2019-03-02] MEDS: ACETAMINOPHEN 325 MG TABLET PO PRN (13:37)
[2019-03-02] MEDS: 0.9 % SODIUM CHLORIDE 10 ML SYRINGE IV SCH ×2 (13:38→21:44)
--- NOTE | 2019-03-02 16:27 | Magnetic Resonance Report ---
CLINICAL INFORMATION: Acute mental status change question CVA COMPARISON: Head CT 03/01/2019. TECHNIQUE: Sagittal T1, axial T2 FLAIR diffusion ADC images were obtained FINDINGS: The ventricles, sulci, fissures and cisterns are symmetrically enlarged without mild age-related atrophy - no extra-axial fluid collections or masses appreciated. Patchy chronic ischemic changes in the deep cerebral white matter typical for age. There is a 5 mm remote lacunar infarct in the anterior limb of the left internal capsule. There are no regions of restricted diffusion to suggest acute ischemia. IMPRESSION: Mild atrophy with chronic ischemic changes in the cerebral white matter - typical for age. 5 mm remote lacunar infarct in the anterior limb right internal capsule again seen. No evidence of acute infarct or other acute intracerebral abnormality Interpreted and Authenticated by: Hilario Michele 03/02/19
[2019-03-02] MEDS: ATORVASTATIN 40 MG TABLET PO SCH (21:44)
[2019-03-02] MEDS: FAMOTIDINE 20 MG TABLET PO SCH (21:44)
[2019-03-02] MEDS: DIVALPROEX SODIUM 250 MG TABLET PO SCH (21:44)
[2019-03-02] MEDS: OXYBUTYNIN CHLORIDE 5 MG TABLET PO SCH (21:44)
[2019-03-03] MEDS: 0.9 % SODIUM CHLORIDE 500 ML IV SCH (00:39)
[2019-03-03] MEDS: 0.9 % SODIUM CHLORIDE 10 ML SYRINGE IV SCH ×4 (05:57→21:17)
[2019-03-03 06:20] LABS: ALT/SGPT 46 U/l (0-40); AST/SGOT 55 U/l (0-37); Albumin 2.8 gm/dL (3.2-5.2); Albumin/Globulin Ratio 0.8 (1.0-2.3); Alkaline Phosphatase 105 U/L (39-117); Bilirubin,Direct 0.3 mg/dL (0.0-0.3); Blood Urea Nitrogen 25 mg/dl (8-23); Calcium 8.8 mg/dl (8.6-10.4); Carbon Dioxide 26 mmol/L (22-30); Chloride 99 mmol/L (96-108); Globulin 3.4 gm/dL (2.2-3.7); Glomerular Filtration Rate 76; Glucose 99 mg/dL (70-105); Lactate Dehydrogenase 257 U/L (94-250); Phosphorous 2.5 mg/dL (2.7-4.5); Triglycerides 109 mg/dl (<150); Uric Acid 5.1 mg/dL (2.5-8.0)
[2019-03-03] MEDS: LEVOTHYROXINE 50 MCG TABLET PO SCH (07:49)
[2019-03-03] MEDS ORDERED: LABETALOL 5 MG/ML ML IV PRN (07:54)
[2019-03-03] MEDS ORDERED: hydrALAZINE 20 MG/ML VIAL IV PRN (07:54)
--- NOTE | 2019-03-03 07:57 | Internal Med Progress Note ---
Medical - PN: Subj Patient information: Note initiated : 03/03/19 at 7:50 am Service Date, if different from initiated Date: [] Patient: Goldy Ortiz 68 y/o M admitted on 03/02/19 for altered mental status. Chief Complaint: [] Interval history: Mr. Ortiz is a 68 year old M Presents to the ED with altered mental state. Patient had a total hip arthroplasty on the fourth. Several days after he fell came back to the ER and then was discharged. But then was brought back by EMS. Per he has been weak has slurred speech and appearing confused. He is been hallucinating and is incontinent of urine. He is incomprehensible at times and speaking. In the ED he did have hypotension in the 80s. His BUN and creatinine were elevated. Lactate was okay and he had no fever or leukocytosis. CT the brain shows an old lacunar infarct but no nothing new. X-ray and urinalysis and EKG no acute pathology. Mentation did seem to show some improvement with IV fluids. In speaking with the patient he does not feel like his speech is slurred although he does say "gruff". When asked about hallucinations he had having yesterday with the cat he says he does recall a cat and now realizing that it was not there. Denies any numbness tingling weakness in any of his extremities. Denies any visual changes. Last bowel movement sounds like may be Monday. Per nurses still seem to have little confusion overnight and mumbling at times. 03/03 Much better. Alert and oriented x4. No overnight events or new complaints. Reports of confusion overnight. Liver enzymes mildly elevated. Pending hepatitis panel and liver ultrasound. Pain with physical therapy. Patient likely needs rehab facility given history of multiple falls and unable to fully care for with recent hip surgery. - Constitutional Vitals: Vital Signs Temp Pulse Resp BP Pulse Ox 98.2 F 83 24 H 165/78 96 03/03/19 04:21 03/02/19 20:00 03/03/19 04:21 03/03/19 04:21 03/03/19 04:21 Period Temp Pulse Resp BP Sys/Mckeon Pulse Ox Last 24 Hr 97.8 F-99.5 F 71-85 11- 104-186/65-85 93-100 Intake and Output 03/02/19 03/03/19 03/03/19 21:59 05:59 13:59 Intake Total 1140 Output Total 851 1425 175 Balance 289 -1425 -175 Weight 119.703 kg Intake & Output: Intake & Output 03/02/19 03/03/19 03/03/19 21:59 05:59 13:59 Intake Total 1140 Output Total 851 1425 175 Balance 289 -1425 -175 Weight 119.703 kg Intake: IV 1000 Lactated Ringers 1,000 ml @ 200 1000 mls/hr IV .Q5H ELY Rx#: [id number] Oral 140 Output: Void Amount 850 1425 175 # of times incontinent of urine 1 Other: Meal Dinner Percent of Meal Consumed 100% Feeding Ability Independent Urine Appearance Clear Clear Urine Color Dark Yellow Bright Yellow Urine Odor Normal # Voids 1 1 Exam: General: Alert, Awake, No acute Distress, obese Eyes/N/T: EOMI, Head/Neck: neck supple, CV: RRR, No murmurs, Pulm: Clear b/l, no wheezing/rhonchi/rales Abd: soft, nontender, +BS x4 Ext: no clubbing/cyanosis/edema Neuro: A&Ox4, focal deficits appreciated, with all extremities, follows all com mands, Skin: warm/dry Medical - PN: Obj Da - Labs CBC & Chem 7: 03/02/19 04:25 03/03/19 04:22 Labs: Abnormal Lab Results 03/03/19 03/02/19 03/02/19 04:22 04:25 04:25 RBC 3.56 L Hgb 10.0 L Hct 31.0 L RDW 16.3 H [place] % (Auto) 13.1 H [place] # (Auto) 1.0 H ABG Methemoglobin VBG pO2 VBG Total CO2 VBG O2 Saturation VBG Base Excess Carboxyhemoglobin Total Hemoglobin BUN 25 H 42 H Creatinine 1.6 H Glucose 113 H Calcium 8.4 L Phosphorus 2.5 L GGT 86 H 66 H AST 55 H 51 H ALT 46 H Lactate Dehydrogenase 257 H Albumin 2.8 L 2.7 L Albumin/Globulin Ratio 0.8 L 0.8 L Urine Urobilinogen 03/01/19 03/01/19 03/01/19 22:10 21:17 21:10 RBC Hgb Hct RDW [place] % (Auto) [place] # (Auto) ABG Methemoglobin 0.3 L VBG pO2 64 H VBG Total CO2 29.3 H VBG O2 Saturation 85.6 H VBG Base Excess 3.1 H Carboxyhemoglobin 3.3 H Total Hemoglobin 10.3 L BUN 44 H Creatinine 1.7 H Glucose 146 H Calcium Phosphorus GGT AST 61 H ALT Lactate Dehydrogenase Albumin 2.7 L Albumin/Globulin Ratio 0.8 L Urine Urobilinogen 2.0 A 03/01/19 21:10 RBC 3.62 L Hgb 10.1 L Hct 31.1 L RDW 16.5 H [place] % (Auto) [place] # (Auto) 1.0 H ABG Methemoglobin VBG pO2 VBG Total CO2 VBG O2 Saturation VBG Base Excess Carboxyhemoglobin Total Hemoglobin BUN Creatinine Glucose Calcium Phosphorus GGT AST ALT Lactate Dehydrogenase Albumin Albumin/Globulin Ratio Urine Urobilinogen Meds: Medications Acetaminophen (Tylenol) 650 mg PO Q6HP PRN PRN Reason: PAIN/FEVER > 101 Last Admin: 03/02/19 13:37 Dose: 650 mg Documented by: Albuterol/Ipratropium (Duoneb) 3 ml NEB Q4HP PRN PRN Reason: Shortness Of Breath Aspirin (Aspirin) 81 mg PO DAILY PENDING SALE TO [facility] Last Admin: 03/02/19 10:13 Dose: 81 mg Documented by: Atorvastatin Calcium (Lipitor) 80 mg PO [facility] Last Admin: 03/02/19 21:44 Dose: 80 mg Documented by: Bupropion HCl (Wellbutrin Xl) 300 mg PO DAILY PENDING SALE TO [facility] Last Admin: 03/02/19 10:13 Dose: 300 mg Documented by: Diagnostic Test (Pha) (Accu-Chek) 1 each FS ACHS PENDING SALE TO [facility] Last Admin: 03/02/19 21:45 Dose: 1 each Documented by: Divalproex Sodium (Depakote Er) 1,000 mg PO HS PEND[facility] SALE TO [facility] Last Admin: 03/02/19 21:44 Dose: 1,000 mg Documented by: Docusate Sodium (Colace) 100 mg PO BID [facility]END[facility] SALE TO [facility] Last Admin: 03/02/19 21:44 Dose: 100 mg Documented by: Enoxaparin Sodium (Lovenox) 40 mg SQ DAILY PENDING SALE TO [facility] Last Admin: 03/02/19 10:13 Dose: 40 mg Documented by: Famotidine (Pepcid) 20 mg PO [facility] Last Admin: 03/02/19 21:44 Dose: 20 mg Documented by: Fluoxetine HCl (Prozac) 60 mg PO DAILY [facility] Last Admin: 03/02/19 10:13 Dose: 60 mg Documented by: Folic Acid (Folic Acid) 1 mg PO DAILY [facility] Last Admin: 03/02/19 10:13 Dose: 1 mg Documented by: Gabapentin (Neurontin) 400 mg PO TID [facility]END[facility] SALE TO [facility] Last Admin: 03/02/19 21:44 Dose: 400 mg Documented by: Sodium Chloride (Sodium Chloride 0.9%) 500 mls @ 20 mls/hr IV .Q24H PENDING SALE TO [facility] Last Admin: 03/03/19 00:39 Dose: Not Given Documented by: Potassium Chloride 40 meq/ (Dextrose) 520 mls @ 130 mls/hr IV UD PRN PRN Reason: Potassium < 3 Magnesium Sulfate (Magnesium Sulfate) 2 gm in 50 mls @ 50 mls/hr IV UD PRN PRN Reason: Magnesium </= 1.6 Lactulose (Cephulac) 10 gm PO DAILYP PRN PRN Reason: Constipation Levothyroxine Sodium (Synthroid) 50 mcg PO QAMAC PENDING SALE TO [facility] Ondansetron HCl (Zofran) 4 mg IV Q4HP PRN PRN Reason: Nausea And Vomiting Ondansetron HCl (Zofran) 4 mg IV Q4HP PRN PRN Reason: Nausea And Vomiting Oxybutynin Chloride (Ditropan) 5 mg PO [facility] Last Admin: 03/02/19 21:44 Dose: 5 mg Documented by: Polyethylene Glycol (Miralax) 17 gm PO DAILYP PRN PRN Reason: Constipation Potassium Chloride (Kdur) 40 meq PO UD PRN PRN Reason: Potssium is 3-3.5 Potassium Chloride (Kdur) 40 meq PO UD PRN PRN Reason: Potassium < 3 Senna (Senokot) 2 tab PO HSP PRN PRN Reason: Constipation Sodium Chloride (Saline Flush) 10 ml IV Q8 PEND[facility] SALE TO [facility] Last Admin: 03/03/19 05:57 Dose: 10 ml Documented by: - ABG Interpretation ABG results: 03/01/19 22:10 ABG Methemoglobin 0.3 L VBG pH 7.42 VBG pCO2 44.0 VBG pO2 64 H VBG HCO3 28.0 VBG Total CO2 29.3 H VBG O2 Saturation 85.6 H VBG Base Excess 3.1 H Medical - PN: A/P - Time Spent With Patient Total time spent is greater than 50% in coordination of care (as documented) at patient's floor/unit and/or counseling patient: - Narrative A/P Narrative: A: *Encephalopathy (lethargy/hallucinations/incomprehensible speech at times): 2/2 hypotension/hypoxia/OZZIE -REsolved -CT brain showing mild atrophy/mild chronic ischemic changes, and an 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
[2019-03-03] MEDS: FLUoxetine HCL 20 MG CAPSULE PO SCH (09:11)
[2019-03-03] MEDS: GABAPENTIN 400 MG CAPSULE PO SCH ×3 (09:11→21:16)
[2019-03-03] MEDS: METOPROLOL TARTRATE 50 MG TABLET PO SCH ×2 (09:11→21:16)
[2019-03-03] MEDS: DOCUSATE SODIUM 100 MG CAPSULE PO SCH ×2 (09:11→21:16)
[2019-03-03] MEDS: FOLIC ACID 1 MG TABLET PO SCH (09:11)
[2019-03-03] MEDS: buPROPion 150 MG TAB.XL.24H PO SCH (09:11)
[2019-03-03] MEDS: ASPIRIN 81 MG TAB.CHEW PO SCH (09:11)
[2019-03-03] MEDS: ENOXAPARIN 40 MG/0.4 ML SYRINGE SQ SCH (09:11)
[2019-03-03 09:30] LABS: Hepatitis B Surface Antigen NEGATIVE (NEGATIVE); Hepatitis C Virus Antibody NON REACTIVE (NEGATIVE)
[2019-03-03] MEDS: amLODIPine 10 MG TABLET PO SCH ×2 (13:38→21:10)
[2019-03-03] MEDS: LISINOPRIL 20 MG TABLET PO SCH ×2 (13:38→21:10)
--- NOTE | 2019-03-03 14:04 | Ultrasound Report ---
CLINICAL INFORMATION: elevated liver enzymes COMPARISON: None. FINDINGS: Liver is normal in size and echotexture without focal lesion. Gallbladder and bile ducts are normal. CBD 5 mm. Pancreas obscured by bowel gas. No free fluid IMPRESSION: Liver, gallbladder and bile ducts are normal. Pancreas obscured by bowel gas. Interpreted and Authenticated by: Hilario Michele 03/03/19
[2019-03-03] MEDS: ACETAMINOPHEN 325 MG TABLET PO PRN (17:31)
[2019-03-03] MEDS: ATORVASTATIN 40 MG TABLET PO SCH (21:16)
[2019-03-03] MEDS: OXYBUTYNIN CHLORIDE 5 MG TABLET PO SCH (21:16)
[2019-03-03] MEDS: DIVALPROEX SODIUM 250 MG TABLET PO SCH (21:16)
[2019-03-03] MEDS: FAMOTIDINE 20 MG TABLET PO SCH (21:16)
[2019-03-04] MEDS: 0.9 % SODIUM CHLORIDE 10 ML SYRINGE IV SCH ×3 (05:23→22:02)
[2019-03-04 05:36] LABS: ALT/SGPT 55 U/l (0-40); AST/SGOT 51 U/l (0-37); Albumin/Globulin Ratio 0.9 (1.0-2.3); Alkaline Phosphatase 122 U/L (39-117); Bilirubin,Direct 0.3 mg/dL (0.0-0.3); Bilirubin,Total 1.1 mg/dL (0.0-1.0); Blood Urea Nitrogen 21 mg/dl (8-23); Calcium 9.3 mg/dl (8.6-10.4); Carbon Dioxide 26 mmol/L (22-30); Chloride 99 mmol/L (96-108); Globulin 3.5 gm/dL (2.2-3.7); Glomerular Filtration Rate 76; Glucose 95 mg/dL (70-105); Lactate Dehydrogenase 273 U/L (94-250); Phosphorous 3.5 mg/dL (2.7-4.5); Triglycerides 104 mg/dl (<150); Uric Acid 4.5 mg/dL (2.5-8.0)
[2019-03-04] MEDS: ACETAMINOPHEN 325 MG TABLET PO PRN (06:51)
[2019-03-04] MEDS: LEVOTHYROXINE 50 MCG TABLET PO SCH (07:54)
[2019-03-04] MEDS: ENOXAPARIN 40 MG/0.4 ML SYRINGE SQ SCH (08:33)
[2019-03-04] MEDS: buPROPion 150 MG TAB.XL.24H PO SCH (08:34)
[2019-03-04] MEDS: GABAPENTIN 400 MG CAPSULE PO SCH ×3 (08:34→21:56)
[2019-03-04] MEDS: DOCUSATE SODIUM 100 MG CAPSULE PO SCH ×2 (08:34→21:57)
[2019-03-04] MEDS: METOPROLOL TARTRATE 50 MG TABLET PO SCH ×2 (08:34→21:56)
[2019-03-04] MEDS: FOLIC ACID 1 MG TABLET PO SCH (08:34)
[2019-03-04] MEDS: ASPIRIN 81 MG TAB.CHEW PO SCH (08:34)
[2019-03-04] MEDS: FLUoxetine HCL 20 MG CAPSULE PO SCH (08:36)
[2019-03-04] MEDS ORDERED: IPRATROPIUM/ALBUTEROL 3 ML AMPUL.NEB NEB PRN (09:30)
[2019-03-04] MEDS ORDERED: LABETALOL 5 MG/ML ML IV PRN (09:30)
[2019-03-04] MEDS ORDERED: hydrALAZINE 20 MG/ML VIAL IV PRN (09:30)
[2019-03-04] MEDS ORDERED: ACETAMINOPHEN 325 MG TABLET PO PRN (09:30)
[2019-03-04] MEDS ORDERED: POTASSIUM CHLORIDE 40 MEQ in DEXTROSE 5% IN WATER 500 ML IV PRN (09:30)
[2019-03-04] MEDS ORDERED: MAGNESIUM SULFATE 2 GM/50 ML BAG IV PRN (09:30)
[2019-03-04] MEDS ORDERED: ONDANSETRON 4 MG/2 ML VIAL IV PRN ×2 (09:30)
[2019-03-04] MEDS ORDERED: LACTULOSE 20 GM/30 ML ORAL.SOL PO PRN (09:30)
[2019-03-04] MEDS ORDERED: POTASSIUM CHLORIDE 20 MEQ TABLET PO PRN ×2 (09:30)
[2019-03-04] MEDS ORDERED: POLYETHYLENE GLYCOL 3350 17 GM PACKET PO PRN (09:30)
[2019-03-04] MEDS ORDERED: SENNOSIDES 1 TABLET PO PRN (09:30)
--- NOTE | 2019-03-04 12:41 | Internal Med Progress Note ---
Medical - PN: Subj Patient information: Note initiated : 03/04/19 at 12:41 pm Service Date, if different from initiated Date: [] Patient: Goldy Ortiz 68 y/o M admitted on 03/02/19 for altered mental status. Chief Complaint: [] Interval history: Mr. Ortiz is a 68 year old M Presents to the ED with altered mental state. Patient had a total hip arthroplasty on the fourth. Several days after he fell came back to the ER and then was discharged. But then was brought back by EMS. Per he has been weak has slurred speech and appearing confused. He is been hallucinating and is incontinent of urine. He is incomprehensible at times and speaking. In the ED he did have hypotension in the 80s. His BUN and creatinine were elevated. Lactate was okay and he had no fever or leukocytosis. CT the brain shows an old lacunar infarct but no nothing new. X-ray and urinalysis and EKG no acute pathology. Mentation did seem to show some improvement with IV fluids. In speaking with the patient he does not feel like his speech is slurred although he does say "gruff". When asked about hallucinations he had having yesterday with the cat he says he does recall a cat and now realizing that it was not there. Denies any numbness tingling weakness in any of his extremities. Denies any visual changes. Last bowel movement sounds like may be Monday. Per nurses still seem to have little confusion overnight and mumbling at times. 03/03 Much better. Alert and oriented x4. No overnight events or new complaints. Reports of confusion overnight. Liver enzymes mildly elevated. Pending hepatitis panel and liver ultrasound. Pain with physical therapy. Patient likely needs rehab facility given history of multiple falls and unable to fully care for with recent hip surgery. 03/04-patient clinically improving. Improved renal function. Ambulating and tolerating physical therapy. Tolerating diet. No fever chills. Pain good control. Anticipate discharge to SNF in 24 hours. Case management coordinating. - Constitutional Vitals: Vital Signs Temp Pulse Resp BP Pulse Ox 97.8 F 70 19 144/84 94 03/04/19 08:07 03/04/19 08:00 03/04/19 08:07 03/04/19 08:07 03/04/19 02:00 Period Temp Pulse Resp BP Sys/Mckeon Pulse Ox Last 24 Hr 97.8 F-98.8 F 70-80 15-29 132-161/67-138 94-98 Intake and Output 03/03/19 03/04/19 03/04/19 21:59 05:59 13:59 Intake Total 1260 Output Total 545 575 905 Balance -545 575 355 Weight 261 lb 8 oz Intake & Output: Intake & Output 03/03/19 03/04/19 03/04/19 21:59 05:59 13:59 Intake Total 1260 Output Total 545 575 905 Balance -545 575 355 Weight 261 lb 8 oz Intake: Oral 1260 Output: Void Amount 545 575 905 Other: Meal Breakfast Percent of Meal Consumed 100% Feeding Ability Independent Urine Appearance Clear Clear Urine Color Bright Yellow Dark Yellow Urine Odor Normal Normal Stool Size Moderate Moderate Stool Color Brown Brown Green Stool Consistency Soft Soft Anel # Bowel Movements 1 General appearance: no acute distress Exam: Alert and oriented Resting comfortably No lymphedema Nonlabored breathing No anxiety Medical - PN: Obj Da - Labs CBC & Chem 7: 03/02/19 04:25 03/04/19 04:02 Labs: Abnormal Lab Results 03/04/19 03/03/19 03/02/19 04:02 04:22 04:25 RBC Hgb Hct RDW Dyer % (Auto) Dyer # (Auto) ABG Methemoglobin VBG pO2 VBG Total CO2 VBG O2 Saturation VBG Base Excess Carboxyhemoglobin Total Hemoglobin BUN 25 H 42 H Creatinine 1.6 H Glucose 113 H Calcium 8.4 L Phosphorus 2.5 L Total Bilirubin 1.1 H GGT 106 H 86 H 66 H AST 51 H 55 H 51 H ALT 55 H 46 H Alkaline Phosphatase 122 H Lactate Dehydrogenase 273 H 257 H Albumin 3.0 L 2.8 L 2.7 L Albumin/Globulin Ratio 0.9 L 0.8 L 0.8 L Urine Urobilinogen 03/02/19 03/01/19 03/01/19 04:25 22:10 21:17 RBC 3.56 L Hgb 10.0 L Hct 31.0 L RDW 16.3 H Dyer % (Auto) 13.1 H Dyer # (Auto) 1.0 H ABG Methemoglobin 0.3 L VBG pO2 64 H VBG Total CO2 29.3 H VBG O2 Saturation 85.6 H VBG Base Excess 3.1 H Carboxyhemoglobin 3.3 H Total Hemoglobin 10.3 L BUN Creatinine Glucose Calcium Phosphorus Total Bilirubin GGT AST ALT Alkaline Phosphatase Lactate Dehydrogenase Albumin Albumin/Globulin Ratio Urine Urobilinogen 2.0 A 03/01/19 03/01/19 21:10 21:10 RBC 3.62 L Hgb 10.1 L Hct 31.1 L RDW 16.5 H Dyer % (Auto) Dyer # (Auto) 1.0 H ABG Methemoglobin VBG pO2 VBG Total CO2 VBG O2 Saturation VBG Base Excess Carboxyhemoglobin Total Hemoglobin BUN 44 H Creatinine 1.7 H Glucose 146 H Calcium Phosphorus Total Bilirubin GGT AST 61 H ALT Alkaline Phosphatase Lactate Dehydrogenase Albumin 2.7 L Albumin/Globulin Ratio 0.8 L Urine Urobilinogen Meds: Medications Acetaminophen (Tylenol) 650 mg PO Q6HP PRN PRN Reason: PAIN/FEVER > 101 Albuterol/Ipratropium (Duoneb) 3 ml NEB Q4HP PRN PRN Reason: Shortness Of Breath Amlodipine Besylate (Norvasc) 10 mg PO HS [facility] Aspirin (Aspirin) 81 mg PO DAILY [facility] Atorvastatin Calcium (Lipitor) 80 mg PO HS [facility] Bupropion HCl (Wellbutrin Xl) 300 mg PO DAILY [facility] Diagnostic Test (Pha) (Accu-Chek) 1 each FS ACHS [facility] Last Admin: 03/04/19 11:40 Dose: 1 each Documented by: Divalproex Sodium (Depakote Er) 1,000 mg PO HS [facility] Docusate Sodium (Colace) 100 mg PO BID [facility] Enoxaparin Sodium (Lovenox) 40 mg SQ DAILY [facility] Famotidine (Pepcid) 20 mg PO HS [facility] Fluoxetine HCl (Prozac) 60 mg PO DAILY [facility] Folic Acid (Folic Acid) 1 mg PO DAILY [facility] Gabapentin (Neurontin) 400 mg PO TID [facility] Hydralazine HCl (Apresoline) 10 - 20 mg IV Q2HP PRN PRN Reason: Hypertension Potassium Chloride 40 meq/ (Dextrose) 520 mls @ 130 mls/hr IV UD PRN PRN Reason: Potassium < 3 Magnesium Sulfate (Magnesium Sulfate) 2 gm in 50 mls @ 50 mls/hr IV UD PRN PRN Reason: Magnesium </= 1.6 Labetalol HCl (Trandate) 0 mg IV Q2HP PRN PRN Reason: Hypertension Lactulose (Cephulac) 10 gm PO DAILYP PRN PRN Reason: Constipation Levothyroxine Sodium (Synthroid) 50 mcg PO QAMAC [facility]Y Lisinopril (Zestril) 40 mg PO HS [facility] Metoprolol Tartrate (Lopressor) 50 mg PO BID [facility] Ondansetron HCl (Zofran) 4 mg IV Q4HP PRN PRN Reason: Nausea And Vomiting Ondansetron HCl (Zofran) 4 mg IV Q4HP PRN PRN Reason: Nausea And Vomiting Oxybutynin Chloride (Ditropan) 5 mg PO HS [facility]Y Polyethylene Glycol (Miralax) 17 gm PO DAILYP PRN PRN Reason: Constipation Potassium Chloride (Kdur) 40 meq PO UD PRN PRN Reason: Potssium is 3-3.5 Potassium Chloride (Kdur) 40 meq PO UD PRN PRN Reason: Potassium < 3 Senna (Senokot) 2 tab PO HSP PRN PRN Reason: Constipation Sodium Chloride (Saline Flush) 10 ml IV Q8 ELY - ABG Interpretation ABG results: 03/01/19 22:10 ABG Methemoglobin 0.3 L VBG pH 7.42 VBG pCO2 44.0 VBG pO2 64 H VBG HCO3 28.0 VBG Total CO2 29.3 H VBG O2 Saturation 85.6 H VBG Base Excess 3.1 H Medical - PN: A/P - Time Spent With Patient Total time spent is greater than 50% in coordination of care (as documented) at patient's floor/unit and/or counseling patient: 15 - 24 minutes - Narrative A/P Narrative: * Acute change mental status-clinically resolved. Neuroimaging shows atr ophic/ischemic changes but no acute process * OZZIE creatinine down to normal from 1.9-1 * Hypotension resolved. Likely secondary to volume depletion. * Recent right MAREK undergoing physical therapy. Anticipate discharge to long term home in 24 hours * History of hypertension continue amlodipine/lisinopril * Hyperlipidemia continue statin * GERD continue PPI * Neuropathy continue gabapentin * Anxiety disorder continue fluoxetine/bupropion * CAD continue aspirin/statin/beta-steve/LEVI inhibitor * Hypothyroidism continue thyroxine * Full code * Prophylaxis Lovenox Plan * Continue aggressive rehab * Anticipate discharge to SNF in 24 hours * Continue pre-existing medical condition management on home meds * PT OT/nutrition support
[2019-03-04] MEDS ORDERED: ATORVASTATIN 40 MG TABLET PO SCH (21:00)
[2019-03-04] MEDS ORDERED: LISINOPRIL 20 MG TABLET PO SCH (21:00)
[2019-03-04] MEDS ORDERED: DIVALPROEX SODIUM 250 MG TABLET PO SCH (21:00)
[2019-03-04] MEDS ORDERED: OXYBUTYNIN CHLORIDE 5 MG TABLET PO SCH (21:00)
[2019-03-04] MEDS ORDERED: amLODIPine 10 MG TABLET PO SCH (21:00)
[2019-03-04] MEDS ORDERED: FAMOTIDINE 20 MG TABLET PO SCH (21:00)
[2019-03-04] MEDS ORDERED: HYDROCODONE/APAP 7.5/325MG TABLET PO PRN (23:50)
[2019-03-04] MEDS ORDERED: oxyCODONE/APAP 5/325MG TABLET PO PRN (23:52)
[2019-03-05] MEDS ORDERED: HYDROCODONE/APAP 7.5/325MG TABLET PO ONE (00:01)
[2019-03-05] MEDS: 0.9 % SODIUM CHLORIDE 10 ML SYRINGE IV SCH ×2 (06:42→14:32)
[2019-03-05] MEDS ORDERED: LEVOTHYROXINE 50 MCG TABLET PO SCH (07:30)
[2019-03-05] MEDS ORDERED: FOLIC ACID 1 MG TABLET PO SCH (09:00)
[2019-03-05] MEDS ORDERED: FLUoxetine HCL 20 MG CAPSULE PO SCH (09:00)
[2019-03-05] MEDS ORDERED: ENOXAPARIN 40 MG/0.4 ML SYRINGE SQ SCH (09:00)
[2019-03-05] MEDS ORDERED: ASPIRIN 81 MG TAB.CHEW PO SCH (09:00)
[2019-03-05] MEDS ORDERED: buPROPion 150 MG TAB.XL.24H PO SCH (09:00)
[2019-03-05] MEDS: GABAPENTIN 400 MG CAPSULE PO SCH ×2 (09:24→14:31)
[2019-03-05] MEDS: DOCUSATE SODIUM 100 MG CAPSULE PO SCH (09:24)
[2019-03-05] MEDS: METOPROLOL TARTRATE 50 MG TABLET PO SCH (09:24)
--- NOTE | 2019-03-05 13:47 | Discharge Summary ---
Medical - DS: Prov Patient information: Note initiated : 03/05/19 at 1:45 pm Service Date, if different from initiated Date: [] Patient: Goldy Ortiz 68 y/o M admitted on 03/02/19 for altered mental status. Chief Complaint: [] Date of admission: 03/02/19 01:00 Discharge date: 03/05/19 Primary care physician: PCP No Consults: 03/02/19 07:22 Consult to Physician [CONS] Routine Comment: Consulting Provider: Emile Mota Reason For Exam: Physician to Consult Medical - DS: Meds - Discharge Medications Active and Home Medications: Home Medications Aspirin 81 mg PO DAILY 02/18/19 [History Confirmed 03/01/19 Last Taken 3 Weeks Ago ~02/04/19] FLUoxetine HCL [Prozac] 60 mg PO DAILY 02/18/19 [History Confirmed 03/01/19 Last Taken 02/25/19] Flunisolide Graciela [place] [Nasalide] 2 spray GRACIELA BID 02/18/19 [History Confirmed 03/01/19 Last Taken 3 Weeks Ago ~02/04/19] Folic Acid 1 mg PO DAILY 02/18/19 [History Confirmed 03/01/19 Last Taken 02/25/19] Gabapentin [Neurontin] 400 mg PO TID 02/18/19 [History Confirmed 03/01/19 Last Taken 1 Week Ago ~02/18/19] Hydrocodone/APAP 7.5/325Mg [Zarephath 7.5-325Mg] 1 tab PO BIDP PRN 02/18/19 [History Confirmed 03/01/19 Last Taken 02/24/19] Ibuprofen [Motrin] 400 mg PO TIDP PRN 02/18/19 [History Confirmed 03/01/19 Last Taken 3 Days Ago ~02/22/19] Levothyroxine [Synthroid] 50 mcg PO QAMAC 02/18/19 [History Confirmed 03/01/19 Last Taken 02/25/19] Lisinopril [Zestril] 40 mg PO HS 02/18/19 [History Confirmed 03/01/19 Last Taken 02/24/19] Metoprolol Tartrate [Lopressor] 50 mg PO BID 02/18/19 [History Confirmed 9 Last Taken 02/25/19] Omeprazole [Prilosec] 40 mg PO ACB 02/18/19 [History Confirmed 03/01/19 Last Taken 2 Months Ago ~12/26/18] Oxybutynin Chloride [Ditropan] 5 mg PO HS 02/18/19 [History Confirmed 03/01/19 Last Taken 02/24/19] Rosuvastatin [Crestor] 40 mg PO HS 02/18/19 [History Confirmed 03/01/19 Last Taken 02/24/19] amLODIPine [Norvasc] 10 mg HS 02/18/19 [History Confirmed 03/01/19 Last Taken 02/24/19] buPROPion [Wellbutrin Xl] 300 mg PO DAILY 02/18/19 [History Confirmed 03/01/19 Last Taken 02/25/19] Divalproex Sodium [Divalproex Sodium ER] 1,000 mg PO HS 02/20/19 [History Confirmed 03/01/19 Last Taken 02/24/19] Aspirin [Ecotrin] 325 mg PO BID #60 tab.ec 02/26/19 [Rx Confirmed 03/01/19 Last Taken Unknown] Docusate Sodium [Colace] 100 mg PO BID #60 cap 02/26/19 [Rx Confirmed 03/01/19 L ast Taken Unknown] oxyCODONE/APAP [Percocet 5-325 mg] 1 - 2 tab PO Q4HP PRN #75 tab 02/26/19 [Rx Confirmed 03/01/19 Last Taken Unknown] Medical - DS: Hosp Discharge diagnosis: . Secondary discharge diagnosis: Discharge diagnosis * Acute change mental status-likely secondary to volume depletion. Clinically resolved. Neuroimaging shows atrophic/ischemic changes but no acute process. * OZZIE creatinine down to normal from 1.9-1 with aggressive crystalloids * Hypotension resolved with crystalloids. * Recent right MAREK . Continue aggressive postoperative PT OT at rehab center * History of hypertension patient needs to continue home dose amlodipine/lisinopril * Hyperlipidemia continue statin * GERD continue PPI * Neuropathy continue gabapentin * Anxiety disorder continue fluoxetine/bupropion * CAD continue aspirin/statin/beta-steve/LEVI inhibitor * Hypothyroidism continue thyroxine * Full code Brief hospital course Mr. Ortiz is a 68 year old M Presents to the ED with altered mental state. Patient had a total hip arthroplasty on the fourth. Several days after he fell came back to the ER and then was discharged. But then was brought back by EMS. Per he has been weak has slurred speech and appearing confused. He is been hallucinating and is incontinent of urine. He is incomprehensible at times and speaking. In the ED he did have hypotension in the 80s. His BUN and creatinine were elevated. Lactate was okay and he had no fever or leukocytosis. CT the brain shows an old lacunar infarct but no nothing new. X-ray and urinalysis and EKG no acute pathology. Mentation did seem to show some improvement with IV fluids. In speaking with the patient he does not feel like his speech is slurred although he does say "gruff". When asked about hallucinations he had having yesterday with the cat he says he does recall a cat and now realizing that it was not there. Denies any numbness tingling weakness in any of his extremities. Denies any visual changes. Last bowel movement sounds like may be Monday. Per nurses still seem to have little confusion overnight and mumbling at times. 03/03 Much better. Alert and oriented x4. No overnight events or new complaints. Reports of confusion overnight. Liver enzymes mildly elevated. Pending hepatitis panel and liver ultrasound. Pain with physical therapy. Patient likely needs rehab facility given history of multiple falls and unable to fully care for with recent hip surgery. 03/04-patient clinically improving. Improved renal function. Ambulating and tolerating physical therapy. Tolerating diet. No fever chills. Pain good control. Anticipate discharge to SNF in 24 hours. Case management coordinating. 03/05-patient doing remarkably better. Discharging to [facility] long[facility]term. No overnight fever chills. Ambulating and tolerating diet and undergoing physical therapy. Continue follow-up with orthopedics as outpatient. Detailed discharge instructions as below - Time Spent with Patient Total time spent providing and/or coordinating discharge services: Greater than 30 minutes Medical - DS: Exam - Constitutional Vitals: Vital Signs Temp Pulse Pulse Resp BP BP Pulse Ox 03/05/19 11:53 98.4 F 76 22 125/71 97 03/05/19 07:49 97.7 F 69 20 107/71 96 03/05/19 07:09 68 20 97 03/05/19 03:45 97.7 F 68 24 H 145/75 97 03/04/19 23:17 98.2 F 71 22 162/82 97 03/04/19 19:23 97.7 F 74 24 H 166/83 95 03/04/19 15:29 97.3 F 68 16 126/78 96 03/04/19 14:00 76 20 94 Intake and Output 03/04/19 03/05/19 03/05/19 21:59 05:59 13:59 Intake Total 240 1000 390 Output Total 1335 525 450 Balance -1095 475 -60 Intake: Oral 240 1000 390 Output: Void Amount 1335 525 450 Other: Meal Dinner Lunch Percent of Meal Consumed 100% 100% Feeding Ability Independent Independent Urine Appearance Clear Clear Clear Urine Color Bright Yellow Bright Yellow Bright Yellow Urine Odor Normal Normal Normal Stool Size Moderate Moderate Stool Color Brown Brown Green Stool Consistency Soft Soft Anel # Voids 1 Weight 260 lb 8 oz Medical - DS: Data Labs on day of discharge: Preliminary micro results at discharge 03/01/19 21:58 Blood Culture - Preliminary Blood 03/01/19 22:10 Blood Culture - Preliminary Blood Medical - DS: A/P - Patient/Caregiver Discharge Instructions Activity: as per physical therapy, increase activity as tolerated, resume usual activities as tolerated Diet: Regular Diet Additional Instructions: Follow-up orthopedics as advised Aggressive PT OT - Follow up Plan Follow up with: No,PCP [Primary Care Provider] - Disposition: Xfer SNF Prognosis: Rehab Potential: Fair I certify that the patient requires SNF services: Yes Overall status at discharge: patient is progressing back to baseline
== END 2019-03-05 15:45 | DRG 641 ==
LOC: ED 20:48 → ICU 03-02 01:00 → MEDSUR 03-04 10:20
PROVIDERS: ADMIT Internal Medicine; ATTEND Internal Medicine

== ENCOUNTER 2019-04-12 13:57 | Inpatient (IN) ==
[~2019-04-12 13:57] MED LIST changes: -0.9 % SODIUM CHLORIDE 9 ML, KETOROLAC 30 MG, ROPIVACAINE HCL/PF 49.5 ML, EPINEPHrine 0.... IJ SCH; -ACETAMINOPHEN 500 MG TABLET PO SCH; -CELECOXIB 200 MG CAPSULE PO SCH; -GABAPENTIN 400 MG CAPSULE PO SCH; -oxyCODONE 10 MG TAB.ER.12H PO SCH
[2019-04-12 14:54] LABS: Basophils # (Auto) 0 K/mcL (0.0-0.3); Basophils % (Auto) 0.5 % (0.0-2.0); Eosinophils # (Auto) 0.3 K/mcL (0.0-0.7); Eosinophils % (Auto) 3.9 % (0.0-7.0); Granulocytes % (Auto) 52.8 % (38.0-78.0); Hematocrit 38.9 % (41.0-55.0); Hemoglobin 12.5 g/dL (13.5-16.5); Lymphocytes # (Auto) 2.3 K/mcL (1.5-4.8); Lymphocytes % (Auto) 30.3 % (15.5-49.0); Mean Cell Volume 82.2 fL (80.0-100.0); Mean Corpuscular HGB Conc 32.1 g/dL (31.0-36.0); Mean Platelet Volume 7.3 fL (7.4-10.4); Monocytes # (Auto) 0.9 K/mcL (0.1-0.9); Monocytes % (Auto) 12.5 % (1.0-12.0); Platelet Count 571 K/mcL (140-440); RBC 4.73 M/mcL (4.50-5.90); Red Cell Distribution Width 15.8 % (11.5-14.5); WBC 7.4 K/mcL (4.5-11.0)
[2019-04-12 15:09] LABS: Blood Urea Nitrogen 18 mg/dl (8-23); Calcium 9.6 mg/dl (8.6-10.4); Carbon Dioxide 24 mmol/L (22-30); Chloride 101 mmol/L (96-108); Glomerular Filtration Rate 76; Glucose 106 mg/dL (70-105)
[2019-04-12 15:11] LABS: Prothrombin Time 13.2 sec (11.9-14.5)
[2019-04-12] MEDS ORDERED: SUCCINYLCHOLINE 20 MG/ML ML IV ONE (18:25)
[2019-04-12] MEDS ORDERED: PROPOFOL 200 MG/20 ML VIAL IV ONE (18:25)
[2019-04-12] MEDS ORDERED: KETAMINE 100 MG/ML ML IV ONE (18:25)
[2019-04-12] MEDS ORDERED: DEXAMETHASONE 10 MG/ML VIAL IV ONE (18:25)
[2019-04-12] MEDS ORDERED: GLYCOPYRROLATE 0.2 MG/ML VIAL IV ONE (18:25)
[2019-04-12] MEDS ORDERED: ONDANSETRON 4 MG/2 ML VIAL IV ONE (18:25)
[2019-04-12] MEDS ORDERED: ePHEDrine 50 MG/ML AMPUL IV ONE (18:25)
[2019-04-12] MEDS ORDERED: ONDANSETRON 4 MG/2 ML VIAL IV PRN ×2 (18:50→19:43)
[2019-04-12] MEDS ORDERED: ACETAMINOPHEN 1,000 MG/100 ML BOTTLE IV ONE ×2 (18:50→18:54)
[2019-04-12] MEDS ORDERED: MEPERIDINE 25 MG/ML SYRINGE IV PRN (18:50)
[2019-04-12] MEDS ORDERED: diphenhydrAMINE 50 MG/ML VIAL IV PRN (18:50)
[2019-04-12] MEDS ORDERED: NALOXONE HCL 0.4 MG/ML VIAL IV PRN (18:50)
[2019-04-12] MEDS ORDERED: ePHEDrine 50 MG/ML AMPUL IV PRN (18:50)
[2019-04-12] MEDS ORDERED: METOPROLOL TARTRATE 5 MG/5 ML VIAL IV PRN (18:50)
[2019-04-12] MEDS ORDERED: fentaNYL 100 MCG/2 ML VIAL IV PRN (18:50)
[2019-04-12] MEDS ORDERED: PROMETHAZINE 25 MG/ML VIAL IV PRN (18:50)
[2019-04-12] MEDS ORDERED: ATROPINE SULFATE 0.4 MG/ML VIAL IV PRN (18:50)
[2019-04-12] MEDS ORDERED: IPRATROPIUM/ALBUTEROL 3 ML AMPUL.NEB NEB PRN (18:50)
[2019-04-12] MEDS ORDERED: HYDROmorphone 2 MG/ML VIAL IV PRN (18:50)
[2019-04-12] MEDS ORDERED: METHOCARBAMOL 1,000 MG/10 ML VIAL IV PRN (18:50)
[2019-04-12] MEDS ORDERED: FLUMAZENIL 0.1 MG/ML ML IV PRN (18:50)
[2019-04-12] MEDS ORDERED: LACTATED RINGERS 1,000 ML IV SCH (19:00)
[2019-04-12] MEDS ORDERED: MAGNESIUM HYDROXIDE 30 ML ORAL.SUSP PO PRN (19:43)
[2019-04-12] MEDS ORDERED: TRANEXAMIC ACID 1,000 MG/10 ML VIAL IV SCH (19:43)
[2019-04-12] MEDS ORDERED: FLEETS ADULT ENEMA PR PRN (19:43)
[2019-04-12] MEDS ORDERED: BISACODYL 10 MG SUPP.RECT PR PRN (19:43)
[2019-04-12] MEDS ORDERED: VANCOMYCIN 1,500 MG in 0.9 % SODIUM CHLORIDE 500 ML IV ONE (19:43)
[2019-04-12] MEDS ORDERED: POLYETHYLENE GLYCOL 3350 17 GM PACKET PO PRN (19:43)
[2019-04-12] MEDS ORDERED: ACETAMINOPHEN 325 MG TABLET PO PRN (19:43)
[2019-04-12] MEDS ORDERED: BENZOCAINE/MENTHOL 1 LOZENGE PO PRN (19:43)
[2019-04-12] MEDS ORDERED: KETOROLAC 15 MG/ML VIAL IV PRN (19:43)
[2019-04-12] MEDS ORDERED: TEMAZEPAM 15 MG CAPSULE PO PRN (19:43)
--- NOTE | 2019-04-12 19:43 | Brief Operative Note ---
Date of procedure: 04/12/19 Pre-op diagnosis: Right hip Infection Post-op diagnosis: same Procedure: Right umberto infection Grafts/Implants: Yes Anesthesia: GRACEA Surgeon: Elmo Edwards Dialysis Chief Equipment Technician: Florencio Chapin Estimated blood loss (cc): 100 Specimens Removed/Pathology: none sent Condition: stable Disposition: PACU
[2019-04-12] MEDS: VANCOMYCIN 1 GM VIAL TOPICAL SCH (20:07)
[2019-04-12] MEDS: LACTATED RINGERS 1,000 ML IV SCH (20:30)
[2019-04-12] MEDS: HYDROcodone/APAP 10/325MG TABLET PO PRN (20:56)
[2019-04-12] MEDS: ASPIRIN 325 MG ENTERIC COATED TABLET PO SCH (20:56)
[2019-04-12] MEDS: DOCUSATE SODIUM 100 MG CAPSULE PO SCH (20:56)
[2019-04-12] MEDS: SENNOSIDES 1 TABLET PO SCH (20:56)
[2019-04-12] MEDS: 0.9 % SODIUM CHLORIDE 10 ML SYRINGE IV SCH (20:59)
[2019-04-13] MEDS: ceFAZolin 1 GM VIAL IV SCH ×3 (01:53→19:25)
[2019-04-13] MEDS: 0.9 % SODIUM CHLORIDE 10 ML SYRINGE IV SCH ×4 (05:16→21:07)
--- NOTE | 2019-04-13 08:09 | Orthopedic Progress Note ---
Subjective Patient information: Note initiated : 04/13/19 at 8:07 am Service Date, if different from initiated Date: [] Patient: Goldy Ortiz 68 y/o M admitted on 04/12/19 for Right Hip Irrigation and Debridement and Drainage . Chief Complaint: [feeling well and walking well and no nausea nor vomiting] Objective Vital signs: Vital Signs Temp Pulse Pulse Resp BP BP Pulse Ox 04/13/19 07:36 98.0 F 82 18 124/72 96 04/13/19 06:00 94 04/13/19 04:00 98.4 F 73 20 118/64 94 04/13/19 01:00 93 04/13/19 00:00 70 16 110/63 94 04/12/19 23:30 76 113/72 92 04/12/19 23:00 94 04/12/19 22:30 71 112/63 94 04/12/19 21:43 95 04/12/19 21:00 65 115/71 92 04/12/19 20:44 64 118/70 94 04/12/19 20:31 64 116/54 96 04/12/19 20:20 98.1 F 63 21 128/60 97 04/12/19 20:15 121/56 04/12/19 20:10 116/65 04/12/19 20:05 94/51 100 04/12/19 20:00 97.8 F 60 30 H 98/53 100 04/12/19 19:55 60 26 H 96/51 100 04/12/19 19:50 62 16 98/53 97 04/12/19 17:51 98.0 F 65 16 123/68 96 04/12/19 14:30 97.9 F 61 16 120/70 95 Intake and Output 04/12/19 04/13/19 04/13/19 21:59 05:59 13:59 Intake Total 1000 790 Output Total 25 160 Balance 975 630 Intake: Oral 790 IV - Manual Only 1000 Output: Drainage 160 AUDREY Drain 90 AUDREY Drain B 70 Estimated Blood Loss 25 Other: Meal Dinner Percent of Meal Consumed 75% Feeding Ability Independent Stool Size Moderate Stool Color Brown Stool Consistency Soft # Voids 1 Weight 264 lb Intake & Output: Intake & Output 04/12/19 04/13/19 04/13/19 21:59 05:59 13:59 Intake Total 1000 790 Output Total 25 160 Balance 975 630 Weight 264 lb Intake: Oral 790 IV - Manual Only 1000 Output: Drainage 160 AUDREY Drain 90 AUDREY Drain B 70 Estimated Blood Loss 25 Other: Meal Dinner Percent of Meal Consumed 75% Feeding Ability Independent Stool Size Moderate Stool Color Brown Stool Consistency Soft # Voids 1 Incision: Yes healing Incision clean and dry: Yes Dressing: Yes clean Weight bearing status: full Neurological exam IM: Yes alert, Yes oriented X3, Yes neurovascular intact Extremities exam IM: Yes Foot pink and warm - Labs CBC & BMP: 04/13/19 05:02 04/12/19 14:16 Labs: Orthopedic Labs 04/12/19 14:16 PT 13.2 INR 1.0 04/13/19 04/12/19 05:02 14:16 Hgb 12.5 L Hct 35.0 L 38.9 L
[2019-04-13] MEDS ORDERED: [UNRECOGNIZED DRUG - OTHER] NAS PRN (08:12)
[2019-04-13] MEDS ORDERED: DOCUSATE SODIUM 100 MG CAPSULE PO PRN (08:12)
[2019-04-13] MEDS ORDERED: VANCOMYCIN PER PHARMACY IV SCH (08:45)
[2019-04-13] MEDS ORDERED: ASPIRIN 81 MG TAB.CHEW PO SCH (09:00)
[2019-04-13] MEDS: LACTATED RINGERS 1,000 ML IV SCH ×2 (09:16→18:21)
[2019-04-13] MEDS: DOCUSATE SODIUM 100 MG CAPSULE PO SCH ×2 (09:33→21:06)
[2019-04-13] MEDS: FLUoxetine HCL 20 MG CAPSULE PO SCH (09:34)
[2019-04-13] MEDS: ASPIRIN 325 MG ENTERIC COATED TABLET PO SCH ×2 (09:34→21:07)
[2019-04-13] MEDS: buPROPion 150 MG TAB.XL.24H PO SCH (09:35)
[2019-04-13] MEDS: GABAPENTIN 400 MG CAPSULE PO SCH ×3 (09:35→21:06)
[2019-04-13] MEDS: FOLIC ACID 1 MG TABLET PO SCH (10:42)
[2019-04-13] MEDS: METOPROLOL TARTRATE 50 MG TABLET PO SCH ×2 (15:21→21:06)
[2019-04-13] MEDS: HYDROcodone/APAP 10/325MG TABLET PO PRN (15:29)
[2019-04-13] MEDS: HYDROmorphone 2 MG/ML VIAL IV PRN (15:31)
[2019-04-13] MEDS: VANCOMYCIN 2,000 MG in 0.9 % SODIUM CHLORIDE 500 ML IV SCH (16:07)
[2019-04-13] MEDS: DIVALPROEX SODIUM 250 MG TABLET PO SCH (21:05)
[2019-04-13] MEDS: OXYBUTYNIN CHLORIDE 5 MG TABLET PO SCH (21:06)
[2019-04-13] MEDS: SENNOSIDES 1 TABLET PO SCH (21:06)
[2019-04-13] MEDS: SIMVASTATIN 20 MG TABLET PO SCH (21:06)
[2019-04-13] MEDS: LISINOPRIL 20 MG TABLET PO SCH (21:06)
[2019-04-13] MEDS: amLODIPine 10 MG TABLET PO SCH (21:07)
[2019-04-14] MEDS: LACTATED RINGERS 1,000 ML IV SCH ×2 (00:16→13:47)
[2019-04-14] MEDS: ceFAZolin 1 GM VIAL IV SCH ×3 (02:16→20:48)
[2019-04-14] MEDS: 0.9 % SODIUM CHLORIDE 10 ML SYRINGE IV SCH ×4 (02:17→21:00)
[2019-04-14] MEDS: HYDROmorphone 2 MG/ML VIAL IV PRN ×2 (06:36→12:19)
[2019-04-14] MEDS ORDERED: GLYCOPYRROLATE 0.2 MG/ML VIAL IV ONE (08:00)
[2019-04-14] MEDS ORDERED: PHENYLEPHRINE 10 MG/ML VIAL IV ONE (08:00)
[2019-04-14] MEDS ORDERED: DEXAMETHASONE 10 MG/ML VIAL IV ONE (08:00)
[2019-04-14] MEDS ORDERED: KETAMINE 100 MG/ML ML IV ONE (08:00)
[2019-04-14] MEDS ORDERED: PROPOFOL 200 MG/20 ML VIAL IV ONE (08:00)
[2019-04-14] MEDS ORDERED: ONDANSETRON 4 MG/2 ML VIAL IV ONE (08:00)
[2019-04-14] MEDS ORDERED: SUCCINYLCHOLINE 20 MG/ML ML IV ONE (08:00)
[2019-04-14] MEDS ORDERED: LIDOCAINE HCL/PF 100 MG/5 ML SYRINGE IV ONE (08:00)
[2019-04-14] MEDS ORDERED: TRANEXAMIC ACID 1,000 MG/10 ML VIAL IV ONE (08:00)
[2019-04-14] MEDS ORDERED: ePHEDrine 50 MG/ML AMPUL IV ONE (08:00)
[2019-04-14] MEDS ORDERED: fentaNYL 100 MCG/2 ML VIAL IV ONE (08:00)
[2019-04-14] MEDS ORDERED: GENTAMICIN SULFATE 800 MG/20 ML VIAL IR ONE (08:26)
[2019-04-14] MEDS ORDERED: ATROPINE SULFATE 0.4 MG/ML VIAL IV PRN (08:40)
[2019-04-14] MEDS ORDERED: MEPERIDINE 25 MG/ML SYRINGE IV PRN (08:40)
[2019-04-14] MEDS ORDERED: FLUMAZENIL 0.1 MG/ML ML IV PRN (08:40)
[2019-04-14] MEDS ORDERED: fentaNYL 100 MCG/2 ML VIAL IV PRN (08:40)
[2019-04-14] MEDS ORDERED: NALOXONE HCL 0.4 MG/ML VIAL IV PRN (08:40)
[2019-04-14] MEDS ORDERED: ONDANSETRON 4 MG/2 ML VIAL IV PRN (08:40)
[2019-04-14] MEDS ORDERED: diphenhydrAMINE 50 MG/ML VIAL IV PRN (08:40)
[2019-04-14] MEDS ORDERED: PROMETHAZINE 25 MG/ML VIAL IV PRN (08:40)
[2019-04-14] MEDS ORDERED: ePHEDrine 50 MG/ML AMPUL IV PRN (08:40)
[2019-04-14] MEDS ORDERED: IPRATROPIUM/ALBUTEROL 3 ML AMPUL.NEB NEB PRN (08:40)
[2019-04-14] MEDS ORDERED: METOPROLOL TARTRATE 5 MG/5 ML VIAL IV PRN (08:40)
[2019-04-14] MEDS ORDERED: HYDROmorphone 2 MG/ML VIAL IV PRN (08:40)
[2019-04-14] MEDS ORDERED: ACETAMINOPHEN 1,000 MG/100 ML BOTTLE IV ONE (08:40)
[2019-04-14] MEDS ORDERED: METHOCARBAMOL 1,000 MG/10 ML VIAL IV PRN (08:40)
[2019-04-14] MEDS: VANCOMYCIN 1 GM VIAL TOPICAL SCH (08:42)
[2019-04-14] MEDS ORDERED: LACTATED RINGERS 1,000 ML IV SCH (08:45)
[2019-04-14] MEDS ORDERED: ACETAMINOPHEN 325 MG TABLET PO PRN (09:15)
[2019-04-14] MEDS ORDERED: TRANEXAMIC ACID 1,000 MG/10 ML VIAL IV SCH (09:15)
--- NOTE | 2019-04-14 12:35 | XRay Report ---
CLINICAL INFORMATION: Post-op Total Hip COMPARISON: 02/27/2019 FINDINGS: Right total hip prosthesis in place. The prosthetic acetabulum appears more anteverted than typically seen. Femoral stem is anatomically aligned. No osseous abnormality. Moderate degenerative changes noted in the left hip. SI joints normal. IMPRESSION: Right total hip prostheses - as described Interpreted and Authenticated by: Hilario Michele 04/14/19
[2019-04-14] MEDS: VANCOMYCIN 2,000 MG in 0.9 % SODIUM CHLORIDE 500 ML IV SCH (13:40)
[2019-04-14] MEDS: OMEPRAZOLE 20 MG CAPSULE PO SCH (13:43)
[2019-04-14] MEDS: LEVOTHYROXINE 50 MCG TABLET PO SCH (13:44)
[2019-04-14] MEDS: ASPIRIN 325 MG ENTERIC COATED TABLET PO SCH ×2 (13:44→20:49)
[2019-04-14] MEDS: DOCUSATE SODIUM 100 MG CAPSULE PO SCH ×2 (13:44→20:49)
[2019-04-14] MEDS: METOPROLOL TARTRATE 50 MG TABLET PO SCH ×2 (13:45→20:49)
[2019-04-14] MEDS: FOLIC ACID 1 MG TABLET PO SCH (13:45)
[2019-04-14] MEDS: GABAPENTIN 400 MG CAPSULE PO SCH ×3 (13:46→20:49)
[2019-04-14] MEDS: buPROPion 150 MG TAB.XL.24H PO SCH (13:46)
[2019-04-14] MEDS: FLUoxetine HCL 20 MG CAPSULE PO SCH ×3 (13:46→16:32)
[2019-04-14] MEDS: HYDROcodone/APAP 10/325MG TABLET PO PRN (16:28)
[2019-04-14] MEDS: OXYBUTYNIN CHLORIDE 5 MG TABLET PO SCH (20:49)
[2019-04-14] MEDS: LISINOPRIL 20 MG TABLET PO SCH (20:49)
[2019-04-14] MEDS: DIVALPROEX SODIUM 250 MG TABLET PO SCH (20:49)
[2019-04-14] MEDS: SENNOSIDES 1 TABLET PO SCH (20:49)
[2019-04-14] MEDS: amLODIPine 10 MG TABLET PO SCH (20:49)
[2019-04-14] MEDS: SIMVASTATIN 20 MG TABLET PO SCH (20:50)
[2019-04-15] MEDS: ceFAZolin 1 GM VIAL IV SCH ×2 (02:58→10:05)
[2019-04-15] MEDS: LACTATED RINGERS 1,000 ML IV SCH ×2 (02:59→09:33)
[2019-04-15] MEDS: 0.9 % SODIUM CHLORIDE 10 ML SYRINGE IV SCH ×2 (03:20→15:12)
[2019-04-15] MEDS: LEVOTHYROXINE 50 MCG TABLET PO SCH (07:25)
[2019-04-15] MEDS: OMEPRAZOLE 20 MG CAPSULE PO SCH (07:25)
--- NOTE | 2019-04-15 08:13 | Operative Note ---
DATE OF OPERATION: 04/12/2019 PREOPERATIVE DIAGNOSIS: Infection of the right hip 6 weeks out from a total hip arthroplasty. POSTOPERATIVE DIAGNOSIS: Infection of the right hip 6 weeks out from a total hip arthroplasty. PROCEDURE: Right hip incision and drainage, extensive down to the joint with cultures. SURGEON: Elmo Edwards M.D. ETIQUETTE TEACHER: Florencio Chapin PA-C. The PA's assistance was required for the safe and efficient completion of the entire case. This provider's expertise and technical skill were required throughout the case. The PA assisted with preoperative coordination, intraoperative retraction, wound closure, dressing and splint application, as well as postoperative documentation and care coordination. ANESTHESIA: General LMA anesthesia. COMPLICATIONS: None. DESCRIPTION OF PROCEDURE: The patient was brought to the operating room and put to sleep with general LMA anesthesia. Once asleep, patient's right hip was sterilely prepped and draped in the usual sterile fashion. A timeout was performed. We confirmed the operative site by initials and consent form and x-rays. Once done, we then turned the patient into a left lateral position. Ioban placed over the skin. The hip was very red with some drainage around the site of the hip present. We then made an incision through the prior scar and the infection went down around the fatty tissue and tracked near or down to the joint. We tracked into the joint and cleaned the joint itself. We tracked all the sinuses which were cleaned. We used chlorhexidine solution to wash the wound and to scrape all the tissue. We cut the edges of the wound and excised any contamination areas. We placed two drains. We used 9 liters of irrigation to run through the wound for a thorough irrigation and then we placed vancomycin powder within the wound. We then closed the layer over the drains with #1 Stratafix and #2 Monocryl. Sterile bandage was applied and bayron. The patient's hip was very stable. Cultures were taken for Gram stain and cultures and sensitivities for anaerobic and aerobic cultures. Blood loss was about 50 to 100 mL. We then placed a sterile bandage. The patient left the operating room in good condition. He will be admitted to the hospital for antibiotics. RBH:ronel Job ID: [id number] Doc ID: [id number] Elmo Edwards MD
[2019-04-15] MEDS: FLUoxetine HCL 20 MG CAPSULE PO SCH (08:45)
[2019-04-15] MEDS: buPROPion 150 MG TAB.XL.24H PO SCH (08:45)
[2019-04-15] MEDS: ASPIRIN 325 MG ENTERIC COATED TABLET PO SCH (08:45)
[2019-04-15] MEDS: FOLIC ACID 1 MG TABLET PO SCH (08:45)
[2019-04-15] MEDS: GABAPENTIN 400 MG CAPSULE PO SCH ×2 (08:45→15:12)
[2019-04-15] MEDS: METOPROLOL TARTRATE 50 MG TABLET PO SCH (08:45)
[2019-04-15] MEDS: DOCUSATE SODIUM 100 MG CAPSULE PO SCH (08:46)
--- NOTE | 2019-04-15 08:59 | Operative Note ---
DATE OF OPERATION: 04/14/2019 PREOPERATIVE DIAGNOSIS: Right septic hip. POSTOPERATIVE DIAGNOSIS: Right septic hip. PROCEDURE: Revision and wound debridement and irrigation. SURGEON: Elmo Edwards M.D. ELECTION CLERK: Florencio Chapin PA-C. The PA's assistance was required for the safe and efficient completion of the entire case. This provider's expertise and technical skill were required throughout the case. The PA assisted with preoperative coordination, intraoperative retraction, wound closure, dressing and splint application, as well as postoperative documentation and care coordination. ANESTHESIA: General LMA anesthesia. COMPLICATIONS: None. IMPLANTS: Implants replaced is the femoral head 36 mm head, +2 neck length. A 2.5 neck length was reinserted with ceramic shell. The liner was exchanged which was a highly crossed-linked hooded liner for a 36 mm ball. This was reinserted into the acetabulum. DESCRIPTION OF PROCEDURE: The patient was brought to the operating room and put to sleep with general LMA anesthesia. Once asleep, the patient had the right hip sterilely prepped and draped in the usual sterile fashion. A timeout was performed and confirmed as the operative site by initials, consent form and x-rays. Once this was done, we were able to place Ioban over the skin and confirm the wound looked significantly better from the prior debridement and irrigation. This had healed substantially. The redness had markedly disappeared. The wound was well aligned. The bayron had been removed. We then reincised through the prior scar using a 10 blade and exposed the joint. There was quite a bit of fluid, serosanguineous-type fluid but fairly clear. Once this was done, we then thoroughly irrigated once more. We used a cleaning solution to clean the soft tissues and then exposed the joint. We then dislocated the hip and removed the ceramic ball from the hip as well as the liner. The hooded liner was removed without difficulty, and we were able to get these components out. There was some fluid behind the acetabulum and grayish tissue that was removed. After removal, a thorough irrigation and then soaking the components and the wound in the Irrisept. Once this was done, we were able to then reimplant a 2.5 plus neck length ceramic ball 36 mm in diameter. This was reinserted and then we placed a liner back into the cup which was a 36 mm liner for the appropriate shell size with a evans posteriorly. The patient tolerated this well. Once they were in place, we reduced the hip. It was very stable. We irrigated thoroughly and then closed the fascial layer after placing vancomycin powder over the tissues. We were able to then close the fascial layer with #1 Stratafix. The patient tolerated this well. There were no complications with this and the blood loss was about 50 mL. Once done, we were able to close the skin with a Stratafix suture as well as Monocryl and bayron. Sterile bandage was applied. The patient tolerated this well. This was a revision with debridement and irrigation of the hip. RBH:ronel Job ID: [id number] Doc ID: [id number] Elmo Edwards MD
--- NOTE | 2019-04-15 08:59 | Orthopedic Progress Note ---
Subjective Patient information: Note initiated : 04/15/19 at 8:58 am Service Date, if different from initiated Date: [] Patient: Goldy Ortiz 68 y/o M admitted on 04/12/19 for Right Hip Irrigation and Debridement and Drainage . Chief Complaint: [doing well and no nausea and vomiting] Objective Vital signs: Vital Signs Temp Pulse Resp BP Pulse Ox 04/15/19 03:03 97.8 F 64 24 H 136/66 96 04/14/19 23:13 97.7 F 69 24 H 110/64 96 04/14/19 19:23 97.6 F 76 24 H 98/55 94 04/14/19 17:40 97.9 F 61 16 118/71 95 04/14/19 14:33 97.3 F 65 16 123/60 94 04/14/19 13:45 95 04/14/19 12:13 96 04/14/19 11:13 60 120/66 97 04/14/19 11:10 63 119/71 95 04/14/19 10:58 56 L 123/70 98 04/14/19 10:44 56 L 131/73 97 04/14/19 10:28 59 L 115/62 94 04/14/19 10:13 56 L 120/71 94 04/14/19 10:00 98.1 F 58 L 16 122/46 96 04/14/19 09:55 58 L 15 110/71 97 04/14/19 09:50 59 L 16 117/66 95 04/14/19 09:45 59 L 14 113/60 95 04/14/19 09:40 97.9 F 58 L 18 111/68 97 04/14/19 09:35 64 16 89/56 100 04/14/19 09:30 59 L 17 112/63 99 04/14/19 09:28 97.7 F 59 L 16 137/72 100 Intake and Output 04/14/19 04/15/19 04/15/19 21:59 05:59 13:59 Intake Total 1780 300 240 Output Total 600 750 300 Balance 1180 -450 -60 Intake: IV 500 Vancomycin 2,000 mg In Sodium 500 Chloride 0.9% 500 ml @ 250 mls/ hr IV DAILY [facility] Rx#:[id number] Oral 1280 300 240 Output: Void Amount 600 750 300 Other: Meal Dinner Breakfast Percent of Meal Consumed 100% 100% Feeding Ability Independent Independent Urine Appearance Clear Urine Color Pale Urine Odor Normal Weight 250 lb Intake & Output: Intake & Output 04/14/19 04/15/19 04/15/19 21:59 05:59 13:59 Intake Total 1780 300 240 Output Total 600 750 300 Balance 1180 -450 -60 Weight 250 lb Intake: IV 500 Vancomycin 2,000 mg In Sodium 500 Chloride 0.9% 500 ml @ 250 mls/ hr IV DAILY [facility] Rx#:[id number] Oral 1280 300 240 Output: Void Amount 600 750 300 Other: Meal Dinner Breakfast Percent of Meal Consumed 100% 100% Feeding Ability Independent Independent Urine Appearance Clear Urine Color Pale Urine Odor Normal Incision: Yes healing Incision clean and dry: Yes Dressing: Yes clean Weight bearing status: full Neurological exam IM: Yes alert, Yes oriented X3, Yes neurovascular intact Extremities exam IM: Yes joint swelling, Yes Foot pink and warm - Labs CBC & BMP: 04/15/19 05:19 04/12/19 14:16 Labs: Orthopedic Labs 04/12/19 14:16 PT 13.2 INR 1.0 04/15/19 04/13/19 04/12/19 05:19 05:02 14:16 Hgb 12.5 L Hct 28.2 L 35.0 L 38.9 L
--- NOTE | 2019-04-15 09:03 | Discharge Summary ---
Ortho Discharge - [facility] - Patient Instructions Diet: Regular Diet Activity: activity as tolerated, weight bearing as tolerated Total Hip Protocol: Follow activity instructions as provided by Physical Therapy. Dressing Care: Shannon Ag - leave on for 5 days - Follow Up Plan Follow Up Appointments: Florencio Chapin PA-C [Physician Bulk Fluids Handler] - 04/26/19 10:40 am Disposition: Home, Self-Care Care Plan Goals: antibiotics for 5-6 weeks Plan of Treatment: dc home and set up IV antibiotics Prognosis: Good Rehab Potential: Good I certify that the patient requires SNF services: No Overall status at discharge: patient is progressing back to baseline - Orders For Discharge Additional Discharge Orders: Physical Therapy at Discharge - [facility] Location: None Selected Toilet Riser Discharge Order Location: None Selected Walker Location: None Selected
--- NOTE | 2019-04-15 09:07 | Discharge Summary ---
Ortho Discharge - [facility] - Patient Instructions Diet: Regular Diet Activity: activity as tolerated, weight bearing as tolerated Total Hip Protocol: Follow activity instructions as provided by Physical Therapy. - Follow Up Plan Follow Up Appointments: Florencio Chapin PA-C [Physician Mortgage Collector] - 04/26/19 10:40 am Disposition: Home, Self-Care Care Plan Goals: antibiotics for 5-6 weeks Plan of Treatment: dc home and set up IV antibiotics Prognosis: Good Rehab Potential: Good I certify that the patient requires SNF services: No - Orders For Discharge Prescriptions: Vancomycin 2,000 mg IV DAILY #60 vial Transmission Status: Pending to [facility] Additional Discharge Orders: Physical Therapy at Discharge - [facility] Location: None Selected Toilet Riser Discharge Order Location: None Selected Walker Location: None Selected
[2019-04-15] MEDS: VANCOMYCIN 2,000 MG in 0.9 % SODIUM CHLORIDE 500 ML IV SCH (10:24)
--- NOTE | 2019-04-15 12:40 | XRay Report ---
HISTORY: PICC line insertion FINDINGS: a PICC line has been inserted through the left arm. The tip is located in right atrium of the heart. There is no widening of the mediastinum, pneumothorax or pleural effusion. The lungs are clear. The heart is borderline enlarged but magnified by portable technique. IMPRESSION: PICC line position in the right atrium of the heart. This could be pulled back 5 cm. Interpreted and Authenticated by: Rolando Adkins 04/15/19
[2019-04-15] MEDS ORDERED: 0.9 % SODIUM CHLORIDE 10 ML SYRINGE IV SCH (21:00)
--- NOTE | 2019-05-03 10:56 | Discharge Summary ---
DATE OF ADMISSION: 04/12/2019 DATE OF DISCHARGE: 04/15/2019 DATE OF ADMISSION: 04/12/2019 DATE OF DISCHARGE: 04/15/2019 ADMITTING DIAGNOSIS: Infection of the right hip 6 weeks out from total hip arthroplasty. DISCHARGE DIAGNOSIS: Infection of the right hip 6 weeks out from total hip arthroplasty. the joint with wound cultures was completed on the date of admission. The procedure went without complications. HOSPITAL COURSE: The patient remained stable on the hospital floor incidents. His vitals remained stable. Patient was able to ambulate following surgery and had a significant pain reduction. He did not meet the criteria for home discharge and was discharged on postoperative day #3 to a assisted facility as a result. DISCHARGE INSTRUCTIONS: The patient received our standard postoperative wound care, followup, analgesia, and laboratory followup recommendations that included IV antibiotic therapy and we did involve Infectious Disease for this. Patient was discharged in a stable state. [email or web address]:[email or web address] Job ID: [id number] Doc ID: [id number] Florencio Chapin PA-C
== END 2019-04-15 17:05 | disposition home or self-care (01) | DRG 467 ==
LOC: MEDSUROUT 13:57 → MEDSUR 14:03
PROVIDERS: ADMIT Orthopaedic Surgery; ATTEND Orthopaedic Surgery

== ENCOUNTER 2025-04-01 14:09 | Observation (INO) ==
[2025-04-01] MEDS: 0.9 % SODIUM CHLORIDE 1,000 ML IV ONE (15:07)
[2025-04-01] MEDS: DIPH,PERTUSS(ACELL),TET VAC/PF 0.5 ML SYRINGE IM ONE (15:08)
[2025-04-01 15:30] LABS: Basophils # (Auto) 0.03 K/mcL (0.00-0.30); Basophils % (Auto) 0.4 % (0.0-2.0); Eosinophils # (Auto) 0.22 K/mcL (0.00-0.70); Eosinophils % (Auto) 2.8 % (0.0-7.0); Hematocrit 43.4 % (40.1-51.0); Hemoglobin 13.8 g/dL (13.7-17.5); Lymphocytes # (Auto) 2.21 K/mcL (1.50-4.80); Lymphocytes % (Auto) 27.6 % (15.5-49.0); Mean Corpuscular HGB Conc 31.8 g/dL (31.0-36.0); Monocytes # (Auto) 0.77 K/mcL (0.10-0.90); Monocytes % (Auto) 9.6 % (1.0-12.0); Neutrophils % (Auto) 59.5 % (38.0-78.0); Platelet Count 274 K/mcL (140-440); RBC 4.65 M/mcL (4.63-6.08); WBC 8.0 K/mcL (4.5-11.0)
[2025-04-01 15:46] LABS: Anion Gap 13.0 (8.0-16.0); Blood Urea Nitrogen 13 mg/dL (8-23); Calcium 9.1 mg/dL (8.6-10.4); Carbon Dioxide 20 mmol/L (22-30); Chloride 105 mmol/L (96-108); Glucose 114 mg/dL (70-105); Potassium 4.0 mmol/L (3.3-5.1); Sodium 138 mmol/L (133-145)
[2025-04-01] MEDS ORDERED: ONDANSETRON 4 MG/2 ML VIAL IV PRN (18:09)
[2025-04-01] MEDS ORDERED: DEXTROSE 50% 50 ML VIAL IV PRN (18:09)
[2025-04-01] MEDS ORDERED: IBUPROFEN 600 MG TABLET PO PRN (18:09)
[2025-04-01] MEDS ORDERED: DEXTROSE 31 GM ORAL.SUSP PO PRN (18:09)
[2025-04-01] MEDS ORDERED: IPRATROPIUM/ALBUTEROL 3 ML AMPUL.NEB NEB PRN (18:09)
[2025-04-01] MEDS: ACETAMINOPHEN 325 MG TABLET PO PRN (19:03)
[2025-04-01] MEDS: ACETAMINOPHEN 325 MG TABLET PO ONE (20:15)
[2025-04-01] MEDS ORDERED: [UNRECOGNIZED DRUG - OTHER] NAS PRN (21:44)
[2025-04-01] MEDS: SENNOSIDES 1 TABLET PO SCH (22:23)
[2025-04-01] MEDS: DOCUSATE SODIUM 100 MG CAPSULE PO SCH (22:23)
[2025-04-01] MEDS: 0.9 % SODIUM CHLORIDE 10 ML SYRINGE IV SCH (22:24)
[2025-04-01] MEDS: INSULIN LISPRO 1 UNIT/0.01 ML UNIT SQ SCH (22:36)
[2025-04-01] MEDS: GABAPENTIN 300 MG CAPSULE ONE (22:41)
[2025-04-01] MEDS: LISINOPRIL 20 MG TABLET ONE (22:43)
[2025-04-01] MEDS: DIVALPROEX SODIUM ER 250 MG TABLET PO ONE (22:44)
[2025-04-02] MEDS ORDERED: ALBUTEROL SULFATE 60 PUFF INHALER INH PRN (06:37)
[2025-04-02 06:55] LABS: Basophils # (Auto) 0.03 K/mcL (0.00-0.30); Basophils % (Auto) 0.4 % (0.0-2.0); Eosinophils # (Auto) 0.34 K/mcL (0.00-0.70); Eosinophils % (Auto) 4.5 % (0.0-7.0); Hematocrit 41.5 % (40.1-51.0); Hemoglobin 13.4 g/dL (13.7-17.5); Lymphocytes # (Auto) 3.63 K/mcL (1.50-4.80); Lymphocytes % (Auto) 47.8 % (15.5-49.0); Mean Corpuscular HGB Conc 32.3 g/dL (31.0-36.0); Monocytes # (Auto) 0.73 K/mcL (0.10-0.90); Monocytes % (Auto) 9.6 % (1.0-12.0); Neutrophils % (Auto) 37.4 % (38.0-78.0); Platelet Count 278 K/mcL (140-440); RBC 4.50 M/mcL (4.63-6.08); WBC 7.6 K/mcL (4.5-11.0)
[2025-04-02 07:08] LABS: ALT/SGPT 22 U/L (<40); AST/SGOT 17 U/L (<40); Albumin 3.6 gm/dL (3.2-5.2); Albumin/Globulin Ratio 1.2 (1.0-2.3); Alkaline Phosphatase 79 U/L (39-117); Anion Gap 11.0 (8.0-16.0); Bilirubin,Total 0.7 mg/dL (0.1-1.0); Blood Urea Nitrogen 14 mg/dL (8-23); Calcium 9.1 mg/dL (8.6-10.4); Carbon Dioxide 24 mmol/L (22-30); Chloride 106 mmol/L (96-108); Globulin 2.9 gm/dL (2.2-3.7); Glucose 102 mg/dL (70-105); Potassium 3.9 mmol/L (3.3-5.1); Sodium 141 mmol/L (133-145)
[2025-04-02] MEDS: LEVOTHYROXINE 50 MCG TABLET PO SCH (07:13)
[2025-04-02] MEDS: OMEPRAZOLE 20 MG CAPSULE PO SCH (07:13)
[2025-04-02 07:42] LABS: Estimated Average Glucose(eAG) 146 mg/dL; Hemoglobin A1C 6.7 % Hgb (4.0-6.0)
[2025-04-02] MEDS: buPROPion 150 MG TAB.XL.24H PO SCH (08:20)
[2025-04-02] MEDS: FOLIC ACID 1 MG TABLET PO SCH (08:20)
[2025-04-02] MEDS: ASPIRIN 81 MG TAB.CHEW PO SCH (08:20)
[2025-04-02] MEDS: VITAMIN D3 25 MCG TABLET PO SCH (08:20)
[2025-04-02] MEDS: OXYBUTYNIN CHLORIDE 5 MG TABLET PO SCH (08:20)
[2025-04-02] MEDS: GABAPENTIN 400 MG CAPSULE PO SCH (08:20)
[2025-04-02] MEDS ORDERED: DOCUSATE SODIUM 100 MG CAPSULE PO SCH (09:00)
[2025-04-02 14:27] VITALS: O2SAT 99
[2025-04-02 15:56] VITALS: TEMP 97.3
[2025-04-02] MEDS ORDERED: DIVALPROEX SODIUM ER 250 MG TABLET PO SCH (21:00)
[2025-04-02] MEDS ORDERED: LISINOPRIL 20 MG TABLET PO SCH (21:00)
[2025-04-02] MEDS ORDERED: ATORVASTATIN 40 MG TABLET PO SCH (21:00)
== END 2025-04-02 17:55 | disposition home or self-care (01) ==
LOC: ED 14:09 → MEDSUR 14:09
PROVIDERS: ADMIT Internal Medicine; ATTEND Internal Medicine